=== PATIENT | female | born 1965 | race American Indian/Alaskan Native ===

== ENCOUNTER 2017-05-24 14:48 | Inpatient (IN) | payer SELFPAY ==
[2017-05-24] MEDS ORDERED: MORPHINE IV ONE ×2 (16:49→20:27)
[2017-05-24] MEDS ORDERED: ZOFRAN IV ONE (16:49)
--- NOTE | 2017-05-24 17:11 | Emergency Department Report ---
HPI - General Time Seen by Provider: 05/24/17 16:43 - HPI HPI: Room 24 The patient is a 51-year-old female presented with a chief complaint of chest pain. Patient states her symptoms began 5 days ago caused a sharp chest pain associated with shortness of breath nausea and diaphoresis. Patient also admits to a cough productive of brown sputum for the past 2-3 days and subjective fever. The patient currently gives her pain score 10/10. The patient states she's never had a stress test or cardiac catheterization Location: Chest Duration: 2-3 days Quality: Sharp Severity: 10/10 Modifying factors: [see above] Context: [see above] Mode of transportation: [not driving] ED Past Medical Hx - Past Medical History Hx Hypertension: Yes Hx Headaches / Migraines: Yes - Surgical History Past Surgical History?: Yes Hx Appendectomy: Yes (pt states its been a while) - Family History Family history: no significant - Social History Smoking Status: Current Every Day Smoker (1/2 pack per day) Substance Use Type: None (denies illicit drug) - Medications Home Medications: Home Medications Medication Instructions Recorded Confirmed Last Taken Type No Known Home Medications [No 05/24/17 05/24/17 Unknown History Reported Home Medications] ED Review of Systems ROS: Stated complaint: CHEST PAIN X 5 DAYS Other details as noted in HPI Constitutional: diaphoresis Respiratory: cough, shortness of breath Cardiovascular: chest pain Gastrointestinal: nausea. denies: vomiting Physical Exam - Physical Exam Vital Signs: Vital Signs 05/24/17 16:36 Temperature 98.0 F Pulse Rate 95 H Respiratory 16 Rate Blood Pressure 153/75 O2 Sat by Pulse 95 Oximetry Physical Exam: GENERAL: The patient is well-developed well-nourished female lying on stretcher appearing to be in mild discomfort. [] HEENT: Normocephalic. Atraumatic. Extraocular motions are intact. Patient has moist mucous membranes. NECK: Supple. Trachea midline CHEST/LUNGS: Clear to auscultation. There is no respiratory distress noted. HEART/CARDIOVASCULAR: Regular. There is no tachycardia. There is no gallop rub or murmur. ABDOMEN: Abdomen is soft, nontender. Patient has normal bowel sounds. There is no abdominal distention. SKIN: There is no rash. There is no edema. There is no diaphoresis. NEURO: The patient is awake, alert, and oriented. The patient is cooperative. The patient has normal speech MUSCULOSKELETAL: There is no evidence of acute injury. ED Course Vital Signs 05/24/17 16:36 Temperature 98.0 F Pulse Rate 95 H Respiratory 16 Rate Blood Pressure 153/75 O2 Sat by Pulse 95 Oximetry ED Medical Decision Making - Lab Data Result diagrams: 05/24/17 17:07 05/24/17 17:07 Laboratory Tests 05/24/17 05/24/17 05/24/17 17:07 17:07 17:07 WBC 4.1 L RBC 5.01 Hgb 15.9 H Hct 46.3 H MCV 92 MCH 32 MCHC 34 RDW 14.5 Plt Count 165 PT 14.2 INR 1.05 APTT 31.4 Sodium 129 L Potassium 4.9 Chloride 91.3 L Carbon Dioxide 18 L Anion Gap 25 BUN 21 H Creatinine 1.1 Estimated GFR > 60 BUN/Creatinine Ratio 19 Glucose 99 Calcium 8.4 Total Creatine Kinase 537 H CK-MB (CK-2) 7.5 H CK-MB (CK-2) Rel Index 1.3 Troponin T < 0.010 NT-Pro-B Natriuret Pep 586.3 H - EKG Data -: EKG Interpreted by Me EKG shows normal: sinus rhythm Rate: normal (98 bpm) - EKG Data When compared to previous EKG there are: previous EKG unavailable Interpretation: nonspecific ST-T wave lu (T-wave inversion aVL) - Radiology Data Radiology results: report reviewed (chest x-ray), image reviewed (chest x-ray) interpreted by me: Chest [id number] patchy infiltrates. No pneumothorax FINAL REPORT EXAM: XR CHEST 1V AP HISTORY: chest pain TECHNIQUE: Chest single AP PRIORS: There are no prior studies submitted for comparison FINDINGS: Is there are patchy bilateral confluent pulmonary infiltrates. Cardiac and mediastinal contours are unremarkable. Pulmonary vasculature is unremarkable. No pleural fluid collection identified. IMPRESSION: Bilateral pulmonary infiltrates suspicious for multifocal pneumonia Transcribed By: ANJU Dictated By: ASYA DANIEL MD Electronically Authenticated By: ASYA DANIEL MD Signed Date/Time: 05/24/171323 DD/ 23 TD/TT: 05/24/171323 - Differential Diagnosis pneumonia, ACS, pericarditis, GERD Critical care attestation.: If time is entered above; I have spent that time in minutes in the direct care of this critically ill patient, excluding procedure time. ED Disposition Clinical Impression: Bilateral pneumonia, Chest pain Disposition: DC-[id number] OP ADMIT IP TO THIS HOSP Is pt being admited?: Yes Does the pt Need Aspirin: Yes Condition: Fair Instructions: Bacterial Pneumonia (ED), Chest Pain (ED) Referrals: THALIA LITTLE MD [Primary Care Provider] - 3-5 Days Time of Disposition: 17:48 (hospitalist paged)
[2017-05-24 17:20] LABS: Hematocrit 46.3 % (30.3-42.9); Hemoglobin 15.9 gm/dl (10.1-14.3); Mean Corpuscular HGB Conc 34 % (30-34); Mean Corpuscular Hemoglobin 32 pg (28-32); Mean Corpuscular Volume 92 fl (79-97); Platelet Count 165 K/mm3 (140-440); Red Blood Count 5.01 M/mm3 (3.65-5.03); Red Cell Distribution Width 14.5 % (13.2-15.2)
--- NOTE | 2017-05-24 17:27 | XRay Report ---
FINAL REPORT EXAM: XR CHEST 1V AP HISTORY: chest pain TECHNIQUE: Chest single AP PRIORS: There are no prior studies submitted for comparison FINDINGS: Is there are patchy bilateral confluent pulmonary infiltrates. Cardiac and mediastinal contours are unremarkable. Pulmonary vasculature is unremarkable. No pleural fluid collection identified. IMPRESSION: Bilateral pulmonary infiltrates suspicious for multifocal pneumonia
[2017-05-24 17:31] LABS: INR 1.05 (0.87-1.13); Partial Thromboplastin Time 31.4 Sec. (24.2-36.6)
[2017-05-24 17:44] LABS: Creatine Kinase MB 7.5 ng/mL (0.0-4.0)
[2017-05-24 17:45] LABS: BUN/Creatinine Ratio 19; Blood Urea Nitrogen 21 mg/dL (7-17); Calcium 8.4 mg/dL (8.4-10.2); Hemolysis Index 59
[2017-05-24 17:55] LABS: Basophils % (Manual) 0 % (0.0-1.8); Eosinophils % (Manual) 0 % (0.0-4.3); Total Cells Counted 100
[2017-05-24 17:56] LABS: Anisocytosis 1+; Target Cells Rare
[2017-05-24] MEDS ORDERED: ZOSYN/NS 4.5GM/100ML 4.5 GM/100 ML VIAL IV ONE (18:30)
[2017-05-24] MEDS ORDERED: MORPHINE ONE (20:24)
[2017-05-24] MEDS: DUONEB *Not for PRN Use IH SCH ×2 (20:50→23:46)
[2017-05-24] MEDS ORDERED: TYLENOL PO PRN ×2 (21:31→22:00)
[2017-05-24] MEDS ORDERED: TYLENOL ONE (21:36)
--- NOTE | 2017-05-24 21:40 | History and Physical Report ---
History of Present Illness Date of examination: 05/24/17 Chief complaint: shortness of breath History of present illness: The patient is a 51-year-old female presented with a chief complaint of chest pain. Patient states her symptoms began 5 days ago caused a sharp chest pain associated with shortness of breath nausea and diaphoresis. Patient also admits to a cough productive of brown sputum for the past 2-3 days and subjective fever. The patient currently gives her pain score 10/10. The patient states she's never had a stress test or cardiac catheterization Past History Past Medical History: hypertension (is getting progress note from the patient is getting patient) Past Surgical History: appendectomy Social history: smoking, full code. denies: alcohol abuse, IV drug use Family history: no significant family history Medications and Allergies Allergies Allergy/AdvReac Type Severity Reaction Status Date / Time No Known Allergies Allergy Unverified 05/24/17 16:51 Home Medications Medication Instructions Recorded Confirmed Last Taken Type No Known Home Medications [No 05/24/17 05/24/17 Unknown History Reported Home Medications] Active Meds: Active Medications Acetaminophen (Tylenol) 650 mg PO Q4H PRN PRN Reason: For Pain/Fever/Headache Albuterol/Ipratropium (Duoneb *Not For Prn Use*) 1 ampul IH Q4H NAYE Last Admin: 05/24/17 20:50 Dose: 1 ampul Exam - Physical Exam Narrative exam: GENERAL: The patient is well-developed well-nourished female lying on stretcher appearing to be in mild discomfort. [] HEENT: Normocephalic. Atraumatic. Extraocular motions are intact. Patient has moist mucous membranes. NECK: Supple. Trachea midline CHEST/LUNGS: Clear to auscultation. There is no respiratory distress noted. HEART/CARDIOVASCULAR: Regular. There is no tachycardia. There is no gallop rub or murmur. ABDOMEN: Abdomen is soft, nontender. Patient has normal bowel sounds. There is no abdominal distention. SKIN: There is no rash. There is no edema. There is no diaphoresis. NEURO: The patient is awake, alert, and oriented. The patient is cooperative. The patient has normal speech MUSCULOSKELETAL: There is no evidence of acute injury. - Constitutional Vitals: Temp Pulse Resp BP Pulse Ox 100.4 F H 109 H 27 H 163/75 95 05/24/17 21:26 05/24/17 21:26 05/24/17 21:26 05/24/17 21:26 05/24/17 21:26 Results - Labs CBC & Chem 7: 05/24/17 17:07 05/24/17 17:07 Labs: Laboratory Last Values WBC 4.1 K/mm3 (4.5-11.0) L 05/24/17 17:07 RBC 5.01 M/mm3 (3.65-5.03) 05/24/17 17:07 Hgb 15.9 gm/dl (10.1-14.3) H 05/24/17 17:07 Hct 46.3 % (30.3-42.9) H 05/24/17 17:07 MCV 92 fl (79-97) 05/24/17 17:07 MCH 32 pg (28-32) 05/24/17 17:07 MCHC 34 % (30-34) 05/24/17 17:07 RDW 14.5 % (13.2-15.2) 05/24/17 17:07 Plt Count 165 K/mm3 (140-440) 05/24/17 17:07 Add Manual Diff Complete 05/24/17 17:07 Total Counted 100 05/24/17 17:07 Seg Neuts % (Manual) 76.0 % (40.0-70.0) H 05/24/17 17:07 Band Neutrophils % 0 % 05/24/17 17:07 Lymphocytes % (Manual) 16.0 % (13.4-35.0) 05/24/17 17:07 Reactive Lymphs % (Man) 0 % 05/24/17 17:07 Monocytes % (Manual) 5.0 % (0.0-7.3) 05/24/17 17:07 Eosinophils % (Manual) 0 % (0.0-4.3) 05/24/17 17:07 Basophils % (Manual) 0 % (0.0-1.8) 05/24/17 17:07 Metamyelocytes % 3.0 % 05/24/17 17:07 Myelocytes % 0 % 05/24/17 17:07 Promyelocytes % 0 % 05/24/17 17:07 Blast Cells % 0 % 05/24/17 17:07 Nucleated RBC % Not Reportable 05/24/17 17:07 Seg Neutrophils # Man 3.1 K/mm3 (1.8-7.7) 05/24/17 17:07 Band Neutrophils # 0.0 K/mm3 05/24/17 17:07 Lymphocytes # (Manual) 0.7 K/mm3 (1.2-5.4) L 05/24/17 17:07 Abs React Lymphs (Man) 0.0 K/mm3 05/24/17 17:07 Monocytes # (Manual) 0.2 K/mm3 (0.0-0.8) 05/24/17 17:07 Eosinophils # (Manual) 0.0 K/mm3 (0.0-0.4) 05/24/17 17:07 Basophils # (Manual) 0.0 K/mm3 (0.0-0.1) 05/24/17 17:07 Metamyelocytes # 0.1 K/mm3 05/24/17 17:07 Myelocytes # 0.0 K/mm3 05/24/17 17:07 Promyelocytes # 0.0 K/mm3 05/24/17 17:07 Blast Cells # 0.0 K/mm3 05/24/17 17:07 WBC Morphology Not Reportable 05/24/17 17:07 Hypersegmented Neuts Not Reportable 05/24/17 17:07 Hyposegmented Neuts Not Reportable 05/24/17 17:07 Hypogranular Neuts Not Reportable 05/24/17 17:07 Smudge Cells Not Reportable 05/24/17 17:07 Toxic Granulation Not Reportable 05/24/17 17:07 Toxic Vacuolation Not Reportable 05/24/17 17:07 Dohle Bodies Not Reportable 05/24/17 17:07 Pelger-Huet Anomaly Not Reportable 05/24/17 17:07 Rylan Rods Not Reportable 05/24/17 17:07 Platelet Estimate Appears normal 05/24/17 17:07 Clumped Platelets Not Reportable 05/24/17 17:07 Plt Clumps, EDTA Not Reportable 05/24/17 17:07 Large Platelets Not Reportable 05/24/17 17:07 Giant Platelets Not Reportable 05/24/17 17:07 Platelet Satelliting Not Reportable 05/24/17 17:07 Plt Morphology Comment Not Reportable 05/24/17 17:07 RBC Morphology Not Reportable 05/24/17 17:07 Dimorphic RBCs Not Reportable 05/24/17 17:07 Polychromasia Not Reportable 05/24/17 17:07 Hypochromasia Not Reportable 05/24/17 17:07 Poikilocytosis Not Reportable 05/24/17 17:07 Anisocytosis 1+ 05/24/17 17:07 Microcytosis Not Reportable 05/24/17 17:07 Macrocytosis Not Reportable 05/24/17 17:07 Spherocytes Not Reportable 05/24/17 17:07 Pappenheimer Bodies Not Reportable 05/24/17 17:07 Sickle Cells Not Reportable 05/24/17 17:07 Target Cells Rare 05/24/17 17:07 Tear Drop Cells Not Reportable 05/24/17 17:07 Ovalocytes Not Reportable 05/24/17 17:07 Helmet Cells Not Reportable 05/24/17 17:07 [place]an[place] Bodies Not Reportable 05/24/17 17:07 [place] Rings Not Reportable 05/24/17 17:07 Aung Cells Not Reportable 05/24/17 17:07 Bite Cells Not Reportable 05/24/17 17:07 Crenated Cell Not Reportable 05/24/17 17:07 Elliptocytes Not Reportable 05/24/17 17:07 Acanthocytes (Spur) Not Reportable 05/24/17 17:07 Rouleaux Not Reportable 05/24/17 17:07 Hemoglobin C Crystals Not Reportable 05/24/17 17:07 Schistocytes Not Reportable 05/24/17 17:07 Malaria parasites Not Reportable 05/24/17 17:07 Mac Bodies Not Reportable 05/24/17 17:07 Hem Pathologist Commnt No 05/24/17 17:07 PT 14.2 Sec. (12.2-14.9) 05/24/17 17:07 INR 1.05 (0.87-1.13) 05/24/17 17:07 APTT 31.4 Sec. (24.2-36.6) 05/24/17 17:07 POC ABG pH 7.317 (7.35-7.45) L 05/24/17 20:42 POC ABG pCO2 35.9 (35-45) 05/24/17 20:42 POC ABG pO2 200 (80-105) H 05/24/17 20:42 POC ABG HCO3 18.4 05/24/17 20:42 POC ABG Total CO2 19 05/24/17 20:42 POC ABG O2 Sat 100 05/24/17 20:42 POC ABG Base Excess -8 05/24/17 20:42 FiO2 100 % 05/24/17 20:42 Sodium 129 mmol/L (137-145) L 05/24/17 17:07 Potassium 4.9 mmol/L (3.6-5.0) 05/24/17 17:07 Chloride 91.3 mmol/L (98-107) L 05/24/17 17:07 Carbon Dioxide 18 mmol/L (22-30) L 05/24/17 17:07 Anion Gap 25 mmol/L 05/24/17 17:07 BUN 21 mg/dL (7-17) H 05/24/17 17:07 Creatinine 1.1 mg/dL (0.7-1.2) 05/24/17 17:07 Estimated GFR > 60 ml/min 05/24/17 17:07 BUN/Creatinine Ratio 19 % 05/24/17 17:07 Glucose 99 mg/dL (65-100) 05/24/17 17:07 Calcium 8.4 mg/dL (8.4-10.2) 05/24/17 17:07 Total Creatine Kinase 537 units/L (30-135) H 05/24/17 17:07 CK-MB (CK-2) 7.5 ng/mL (0.0-4.0) H 05/24/17 17:07 CK-MB (CK-2) Rel Index 1.3 (0-4) 05/24/17 17:07 Troponin T < 0.010 ng/mL (0.00-0.029) 05/24/17 17:07 NT-Pro-B Natriuret Pep 586.3 pg/mL (0-450) H 05/24/17 17:07 - Imaging and Cardiology Imaging and Cardiology: EKG shows normal: sinus rhythm Rate: normal (98 bpm) nonspecific ST-T wave lu (T-wave inversion aVL) Chest [id number] patchy infiltrates. No pneumothorax Assessment and Plan Assessment and plan: Assessment and plan - * Bilateral pneumonia * Hypertension * Hyponatremia * Chest pain likely due to pneumonia Plan - admit to medical floor with telemetry Antibiotics in the form of IV Rocephin and azithromycin Continue her home antihypertensive medications give when necessary labetalol When necessary pain medicines for chest pain IV fluids Monitor CBC and electrolytes Replace electrolytes when necessary aspirin protocol DVT Prophylaxis as ordered Monitor and follow the patient closely VTE prophylaxis?: Chemical, Mechanical Plan of care discussed with patient/family: Yes
[2017-05-24] MEDS ORDERED: ZOFRAN IV PRN (22:00)
[2017-05-24] MEDS ORDERED: MILK OF MAGNESIA PO PRN (22:00)
[2017-05-24] MEDS ORDERED: PROVENTIL IH PRN (22:00)
[2017-05-24] MEDS ORDERED: DULCOLAX PR PRN (22:00)
[2017-05-24] MEDS: PEPCID PO SCH (22:57)
[2017-05-24] MEDS: COLACE PO SCH (22:57)
[2017-05-25] MEDS: NACL 0.9% 1000 ML 1,000 ML IV SCH ×2 (00:21→18:10)
[2017-05-25] MEDS: MORPHINE IV PRN ×3 (00:33→23:53)
[2017-05-25] MEDS: DUONEB *Not for PRN Use IH SCH ×4 (01:54→20:08)
[2017-05-25 02:18] LABS: Chol/HDL Ratio 2.78 %
[2017-05-25] MEDS: NORCO 5/325 PO PRN ×2 (03:59→10:13)
[2017-05-25 05:45] LABS: Hematocrit 40.8 % (30.3-42.9); Hemoglobin 13.9 gm/dl (10.1-14.3); Mean Corpuscular HGB Conc 34 % (30-34); Mean Corpuscular Hemoglobin 32 pg (28-32); Mean Corpuscular Volume 92 fl (79-97); Platelet Count 143 K/mm3 (140-440); Red Blood Count 4.43 M/mm3 (3.65-5.03); Red Cell Distribution Width 14.9 % (13.2-15.2)
[2017-05-25 06:01] LABS: Alanine Aminotransferase 10 units/L (7-56); BUN/Creatinine Ratio 21; Blood Urea Nitrogen 21 mg/dL (7-17); Calcium 7.8 mg/dL (8.4-10.2); Hemolysis Index 4
[2017-05-25 06:46] LABS: Anisocytosis 1+; Band Neutrophils # (Manual) 1.4 K/mm3; Basophils % (Manual) 0 % (0.0-1.8); Burr Cells Few; Eosinophils % (Manual) 0 % (0.0-4.3); Target Cells Few; Total Cells Counted 100
[2017-05-25 06:47] LABS: Dohle Bodies Few; Platelet Estimate Consistent w Auto
[2017-05-25] MEDS ORDERED: ROCEPHIN/NS 1 GM/50 ML 1 GM/50 ML BAG IV SCH (10:00)
[2017-05-25] MEDS: COLACE PO SCH ×2 (10:12→21:35)
[2017-05-25] MEDS: LOVENOX SUB-Q SCH (10:12)
[2017-05-25] MEDS: SENOKOT PO SCH ×3 (10:12→21:35)
[2017-05-25] MEDS: PEPCID PO SCH ×2 (10:13→21:35)
--- NOTE | 2017-05-25 10:18 | Progress Note ---
Assessment and Plan Assessment and plan: Sepsis Multifocal pneumonia Lactic acidosis - IV ceftriaxone andazithromycin, IV fluids Chest pain - stress test tomorrow morning DVT prophylaxis -Lovenox Disposition - Continue inpatient care History Interval history: patient was seen and evaluated at the bedside, Complains left sided chest pain. Hospitalist Physical - Physical exam Narrative exam: Not in cardiopulmonary distress. The patient appeared well nourished and normally developed. Vital signs as documented. Head exam is unremarkable. No scleral icterus . Neck is without jugular venous distension, thyromegaly, or carotid bruits. Lungs are clear to auscultation. Cardiac exam reveals regular rate and Rhythm. First and second heart sounds normal. No murmurs, rubs or gallops. Abdominal exam reveals normal bowel sounds, no masses, no organomegaly and no aortic enlargement. Extremities are nonedematous and both femoral and pedal pulses are normal. DIRECTOR HEALTH: Alert and oriented 3. No focal weakness. - Constitutional Vitals: Temp Pulse Resp BP Pulse Ox 98.5 F 89 18 176/94 97 05/25/17 09:11 05/25/17 09:11 05/25/17 09:11 05/25/17 09:11 05/25/17 09:11 Results - Labs CBC & Chem 7: 05/25/17 05:09 05/25/17 05:09 Labs: Laboratory Last Values WBC 5.1 K/mm3 (4.5-11.0) 05/25/17 05:09 RBC 4.43 M/mm3 (3.65-5.03) 05/25/17 05:09 Hgb 13.9 gm/dl (10.1-14.3) 05/25/17 05:09 Hct 40.8 % (30.3-42.9) 05/25/17 05:09 MCV 92 fl (79-97) 05/25/17 05:09 MCH 32 pg (28-32) 05/25/17 05:09 MCHC 34 % (30-34) 05/25/17 05:09 RDW 14.9 % (13.2-15.2) 05/25/17 05:09 Plt Count 143 K/mm3 (140-440) 05/25/17 05:09 Add Manual Diff Complete 05/25/17 05:09 Total Counted 100 05/25/17 05:09 Seg Neuts % (Manual) 57.0 % (40.0-70.0) 05/25/17 05:09 Band Neutrophils % 28.0 % 05/25/17 05:09 Lymphocytes % (Manual) 10.0 % (13.4-35.0) L 05/25/17 05:09 Reactive Lymphs % (Man) 1.0 % 05/25/17 05:09 Monocytes % (Manual) 4.0 % (0.0-7.3) 05/25/17 05:09 Eosinophils % (Manual) 0 % (0.0-4.3) 05/25/17 05:09 Basophils % (Manual) 0 % (0.0-1.8) 05/25/17 05:09 Metamyelocytes % 0 % 05/25/17 05:09 Myelocytes % 0 % 05/25/17 05:09 Promyelocytes % 0 % 05/25/17 05:09 Blast Cells % 0 % 05/25/17 05:09 Nucleated RBC % Not Reportable 05/25/17 05:09 Seg Neutrophils # Man 2.9 K/mm3 (1.8-7.7) 05/25/17 05:09 Band Neutrophils # 1.4 K/mm3 05/25/17 05:09 Lymphocytes # (Manual) 0.5 K/mm3 (1.2-5.4) L 05/25/17 05:09 Abs React Lymphs (Man) 0.1 K/mm3 05/25/17 05:09 Monocytes # (Manual) 0.2 K/mm3 (0.0-0.8) 05/25/17 05:09 Eosinophils # (Manual) 0.0 K/mm3 (0.0-0.4) 05/25/17 05:09 Basophils # (Manual) 0.0 K/mm3 (0.0-0.1) 05/25/17 05:09 Metamyelocytes # 0.0 K/mm3 05/25/17 05:09 Myelocytes # 0.0 K/mm3 05/25/17 05:09 Promyelocytes # 0.0 K/mm3 05/25/17 05:09 Blast Cells # 0.0 K/mm3 05/25/17 05:09 WBC Morphology Not Reportable 05/25/17 05:09 Hypersegmented Neuts Not Reportable 05/25/17 05:09 Hyposegmented Neuts Not Reportable 05/25/17 05:09 Hypogranular Neuts Not Reportable 05/25/17 05:09 Smudge Cells Not Reportable 05/25/17 05:09 Toxic Granulation Not Reportable 05/25/17 05:09 Toxic Vacuolation Not Reportable 05/25/17 05:09 Dohle Bodies Few 05/25/17 05:09 Pelger-Huet Anomaly Not Reportable 05/25/17 05:09 Rylan Rods Not Reportable 05/25/17 05:09 Platelet Estimate Consistent w auto 05/25/17 05:09 Clumped Platelets Not Reportable 05/25/17 05:09 Plt Clumps, EDTA Not Reportable 05/25/17 05:09 Large Platelets Not Reportable 05/25/17 05:09 Giant Platelets Not Reportable 05/25/17 05:09 Platelet Satelliting Not Reportable 05/25/17 05:09 Plt Morphology Comment Not Reportable 05/25/17 05:09 RBC Morphology Not Reportable 05/25/17 05:09 Dimorphic RBCs Not Reportable 05/25/17 05:09 Polychromasia Not Reportable 05/25/17 05:09 Hypochromasia Not Reportable 05/25/17 05:09 Poikilocytosis Not Reportable 05/25/17 05:09 Anisocytosis 1+ 05/25/17 05:09 Microcytosis Not Reportable 05/25/17 05:09 Macrocytosis Not Reportable 05/25/17 05:09 Spherocytes Not Reportable 05/25/17 05:09 Pappenheimer Bodies Not Reportable 05/25/17 05:09 Sickle Cells Not Reportable 05/25/17 05:09 Target Cells Few 05/25/17 05:09 Tear Drop Cells Not Reportable 05/25/17 05:09 Ovalocytes Not Reportable 05/25/17 05:09 Helmet Cells Not Reportable 05/25/17 05:09 Mcdaniels-[place] Bodies Not Reportable 05/25/17 05:09 [place] Rings Not Reportable 05/25/17 05:09 Aung Cells Few 05/25/17 05:09 Bite Cells Not Reportable 05/25/17 05:09 Crenated Cell Not Reportable 05/25/17 05:09 Elliptocytes Not Reportable 05/25/17 05:09 Acanthocytes (Spur) Not Reportable 05/25/17 05:09 Rouleaux Not Reportable 05/25/17 05:09 Hemoglobin C Crystals Not Reportable 05/25/17 05:09 Schistocytes Not Reportable 05/25/17 05:09 Malaria parasites Not Reportable 05/25/17 05:09 Mac Bodies Not Reportable 05/25/17 05:09 Hem Pathologist Commnt No 05/25/17 05:09 PT 14.2 Sec. (12.2-14.9) 05/24/17 17:07 INR 1.05 (0.87-1.13) 05/24/17 17:07 APTT 31.4 Sec. (24.2-36.6) 05/24/17 17:07 POC ABG pH 7.317 (7.35-7.45) L 05/24/17 20:42 POC ABG pCO2 35.9 (35-45) 05/24/17 20:42 POC ABG pO2 200 (80-105) H 05/24/17 20:42 POC ABG HCO3 18.4 05/24/17 20:42 POC ABG Total CO2 19 05/24/17 20:42 POC ABG O2 Sat 100 05/24/17 20:42 POC ABG Base Excess -8 05/24/17 20:42 FiO2 100 % 05/24/17 20:42 Sodium 132 mmol/L (137-145) L 05/25/17 05:09 Potassium 4.6 mmol/L (3.6-5.0) 05/25/17 05:09 Chloride 96.5 mmol/L (98-107) L 05/25/17 05:09 Carbon Dioxide 17 mmol/L (22-30) L 05/25/17 05:09 Anion Gap 23 mmol/L 05/25/17 05:09 BUN 21 mg/dL (7-17) H 05/25/17 05:09 Creatinine 1.0 mg/dL (0.7-1.2) 05/25/17 05:09 Estimated GFR > 60 ml/min 05/25/17 05:09 BUN/Creatinine Ratio 21 % 05/25/17 05:09 Glucose 111 mg/dL (65-100) H 05/25/17 05:09 Hemoglobin A1c 5.9 % (4-6) 05/24/17 17:07 Lactic Acid 2.70 mmol/L (0.7-2.0) H* 05/25/17 05:09 Calcium 7.8 mg/dL (8.4-10.2) L 05/25/17 05:09 Phosphorus 3.10 mg/dL (2.5-4.5) 05/25/17 05:09 Magnesium 1.30 mg/dL (1.7-2.3) L 05/25/17 05:09 Total Bilirubin 0.30 mg/dL (0.1-1.2) 05/25/17 05:09 AST 29 units/L (5-40) 05/25/17 05:09 ALT 10 units/L (7-56) 05/25/17 05:09 Alkaline Phosphatase 59 units/L (35-129) 05/25/17 05:09 Total Creatine Kinase 537 units/L (30-135) H 05/24/17 17:07 CK-MB (CK-2) 7.5 ng/mL (0.0-4.0) H 05/24/17 17:07 CK-MB (CK-2) Rel Index 1.3 (0-4) 05/24/17 17:07 Troponin T < 0.010 ng/mL (0.00-0.029) 05/24/17 17:07 NT-Pro-B Natriuret Pep 586.3 pg/mL (0-450) H 05/24/17 17:07 Total Protein 6.4 g/dL (6.3-8.2) 05/25/17 05:09 Albumin 3.0 g/dL (3.9-5) L 05/25/17 05:09 Albumin/Globulin Ratio 0.9 % 05/25/17 05:09 Triglycerides 104 mg/dL (2-149) 05/24/17 17:07 Cholesterol 92 mg/dL (50-199) 05/24/17 17:07 LDL Cholesterol Direct 39 mg/dL (50-130) L 05/24/17 17:07 HDL Cholesterol 33 mg/dL (40-59) L 05/24/17 17:07 Cholesterol/HDL Ratio 2.78 % 05/24/17 17:07
[2017-05-25] MEDS: cefTRIAXone 1 GM in NACL 0.9% 20 ML IV SCH (11:33)
[2017-05-25] MEDS: ZITHROMAX 500 MG in NACL 0.9% 250ML 250 ML IV SCH (11:34)
[2017-05-25] MEDS ORDERED: Fluarix Quad 2017-2018(36 MOS+ IM ONE (12:00)
[2017-05-26] MEDS: DUONEB *Not for PRN Use IH SCH ×4 (01:15→20:25)
[2017-05-26] MEDS: NORMODYNE IV PRN ×2 (01:22→16:20)
[2017-05-26 06:37] LABS: Hemoglobin 11.5 gm/dl (10.1-14.3); Mean Corpuscular HGB Conc 34 % (30-34); Mean Corpuscular Hemoglobin 31 pg (28-32); Mean Corpuscular Volume 92 fl (79-97); Platelet Count 165 K/mm3 (140-440); Red Cell Distribution Width 15.1 % (13.2-15.2)
[2017-05-26] MEDS: MORPHINE IV PRN ×2 (06:37→12:22)
[2017-05-26 06:49] LABS: Hematocrit 35.6 % (30.3-42.9)
[2017-05-26 06:52] LABS: BUN/Creatinine Ratio 20; Blood Urea Nitrogen 12 mg/dL (7-17); Calcium 8.2 mg/dL (8.4-10.2); Hemolysis Index 3
[2017-05-26 07:50] LABS: Band Neutrophils # (Manual) 2.8 K/mm3; Basophils % (Manual) 0 % (0.0-1.8); Eosinophils % (Manual) 0 % (0.0-4.3); Total Cells Counted 100
[2017-05-26 07:51] LABS: Anisocytosis 1+; Burr Cells Few; Dohle Bodies Few; Macrocytosis 1+; Target Cells Rare
[2017-05-26] MEDS ORDERED: LEXISCAN IV ONE ×2 (08:24→10:10)
[2017-05-26] MEDS: NORCO 5/325 PO PRN ×2 (11:30→21:54)
[2017-05-26] MEDS: cefTRIAXone 1 GM in NACL 0.9% 20 ML IV SCH (12:19)
[2017-05-26] MEDS: LOVENOX SUB-Q SCH (12:20)
[2017-05-26] MEDS: PEPCID PO SCH ×2 (12:20→21:54)
[2017-05-26] MEDS: NORVASC PO SCH (12:20)
[2017-05-26] MEDS: SENOKOT PO SCH ×2 (12:21→21:54)
[2017-05-26] MEDS: COLACE PO SCH ×2 (12:21→21:55)
[2017-05-26] MEDS: APRESOLINE PO SCH ×2 (14:00→20:23)
--- NOTE | 2017-05-26 16:18 | Progress Note ---
Assessment and Plan Assessment and plan: Sepsis - Patient is managed according to sepsis protocol Multifocal pneumonia - Continue antibiotics, blood culture is negative so far Lactic acidosis - Resolved Hypertensive urgency; vision is on amlodipine, hydralazine, and clonidine added , will follow closely - IV ceftriaxone andazithromycin, IV fluids Chest pain - stress test done pending results - CTA ordered today, we'll follow the result DVT prophylaxis -Lovenox Disposition - Continue inpatient care History Interval history: patient was seen and evaluated at the bedside, chest pain is getting better. Hospitalist Physical - Physical exam Narrative exam: Not in cardiopulmonary distress. The patient appeared well nourished and normally developed. Vital signs as documented. Head exam is unremarkable. No scleral icterus . Neck is without jugular venous distension, thyromegaly, or carotid bruits. Lungs are clear to auscultation. Cardiac exam reveals regular rate and Rhythm. First and second heart sounds normal. No murmurs, rubs or gallops. Abdominal exam reveals normal bowel sounds, no masses, no organomegaly and no aortic enlargement. Extremities are nonedematous and both femoral and pedal pulses are normal. 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 No focal weakness. - Constitutional Vitals: Temp Pulse Resp BP Pulse Ox 99.0 F 91 H 18 212/92 94 05/26/17 05:26 05/26/17 09:58 05/26/17 07:07 05/26/17 09:58 05/26/17 05:26 Results - Labs CBC & Chem 7: 05/26/17 06:00 05/26/17 06:00 Labs: Laboratory Last Values WBC 7.3 K/mm3 (4.5-11.0) 05/26/17 06:00 RBC 3.70 M/mm3 (3.65-5.03) 05/26/17 06:00 Hgb 11.5 gm/dl (10.1-14.3) 05/26/17 06:00 Hct 35.6 % (30.3-42.9) 05/26/17 06:00 MCV 92 fl (79-97) 05/26/17 06:00 MCH 31 pg (28-32) 05/26/17 06:00 MCHC 34 % (30-34) 05/26/17 06:00 RDW 15.1 % (13.2-15.2) 05/26/17 06:00 Plt Count 165 K/mm3 (140-440) 05/26/17 06:00 Add Manual Diff Complete 05/26/17 06:00 Total Counted 100 05/26/17 06:00 Seg Neuts % (Manual) 48.0 % (40.0-70.0) 05/26/17 06:00 Band Neutrophils % 39.0 % 05/26/17 06:00 Lymphocytes % (Manual) 10.0 % (13.4-35.0) L 05/26/17 06:00 Reactive Lymphs % (Man) 0 % 05/26/17 06:00 Monocytes % (Manual) 3.0 % (0.0-7.3) 05/26/17 06:00 Eosinophils % (Manual) 0 % (0.0-4.3) 05/26/17 06:00 Basophils % (Manual) 0 % (0.0-1.8) 05/26/17 06:00 Metamyelocytes % 0 % 05/26/17 06:00 Myelocytes % 0 % 05/26/17 06:00 Promyelocytes % 0 % 05/26/17 06:00 Blast Cells % 0 % 05/26/17 06:00 Nucleated RBC % 1.0 % (0.0-0.9) H 05/26/17 06:00 Seg Neutrophils # Man 3.5 K/mm3 (1.8-7.7) 05/26/17 06:00 Band Neutrophils # 2.8 K/mm3 05/26/17 06:00 Lymphocytes # (Manual) 0.7 K/mm3 (1.2-5.4) L 05/26/17 06:00 Abs React Lymphs (Man) 0.0 K/mm3 05/26/17 06:00 Monocytes # (Manual) 0.2 K/mm3 (0.0-0.8) 05/26/17 06:00 Eosinophils # (Manual) 0.0 K/mm3 (0.0-0.4) 05/26/17 06:00 Basophils # (Manual) 0.0 K/mm3 (0.0-0.1) 05/26/17 06:00 Metamyelocytes # 0.0 K/mm3 05/26/17 06:00 Myelocytes # 0.0 K/mm3 05/26/17 06:00 Promyelocytes # 0.0 K/mm3 05/26/17 06:00 Blast Cells # 0.0 K/mm3 05/26/17 06:00 WBC Morphology Not Reportable 05/26/17 06:00 Hypersegmented Neuts Not Reportable 05/26/17 06:00 Hyposegmented Neuts Not Reportable 05/26/17 06:00 Hypogranular Neuts Not Reportable 05/26/17 06:00 Smudge Cells Not Reportable 05/26/17 06:00 Toxic Granulation Not Reportable 05/26/17 06:00 Toxic Vacuolation Not Reportable 05/26/17 06:00 Dohle Bodies Few 05/26/17 06:00 Pelger-Huet Anomaly Not Reportable 05/26/17 06:00 Rylan Rods Not Reportable 05/26/17 06:00 Platelet Estimate Appears normal 05/26/17 06:00 Clumped Platelets Not Reportable 05/26/17 06:00 Plt Clumps, EDTA Not Reportable 05/26/17 06:00 Large Platelets Not Reportable 05/26/17 06:00 Giant Platelets Not Reportable 05/26/17 06:00 Platelet Satelliting Not Reportable 05/26/17 06:00 Plt Morphology Comment Not Reportable 05/26/17 06:00 RBC Morphology Not Reportable 05/26/17 06:00 Dimorphic RBCs Not Reportable 05/26/17 06:00 Polychromasia Not Reportable 05/26/17 06:00 Hypochromasia Not Reportable 05/26/17 06:00 Poikilocytosis Not Reportable 05/26/17 06:00 Anisocytosis 1+ 05/26/17 06:00 Microcytosis Not Reportable 05/26/17 06:00 Macrocytosis 1+ 05/26/17 06:00 Spherocytes Not Reportable 05/26/17 06:00 Pappenheimer Bodies Not Reportable 05/26/17 06:00 Sickle Cells Not Reportable 05/26/17 06:00 Target Cells Rare 05/26/17 06:00 Tear Drop Cells Not Reportable 05/26/17 06:00 Ovalocytes Not Reportable 05/26/17 06:00 Helmet Cells Not Reportable 05/26/17 06:00 Mcdaniels-[place] Bodies Not Reportable 05/26/17 06:00 [place] Rings Not Reportable 05/26/17 06:00 [place] Cells Few 05/26/17 06:00 Bite Cells Not Reportable 05/26/17 06:00 Crenated Cell Not Reportable 05/26/17 06:00 Elliptocytes Not Reportable 05/26/17 06:00 Acanthocytes (Spur) Not Reportable 05/26/17 06:00 Rouleaux Not Reportable 05/26/17 06:00 Hemoglobin C Crystals Not Reportable 05/26/17 06:00 Schistocytes Not Reportable 05/26/17 06:00 Malaria parasites Not Reportable 05/26/17 06:00 Mac Bodies Not Reportable 05/26/17 06:00 Hem Pathologist Commnt No 05/26/17 06:00 PT 14.2 Sec. (12.2-14.9) 05/24/17 17:07 INR 1.05 (0.87-1.13) 05/24/17 17:07 APTT 31.4 Sec. (24.2-36.6) 05/24/17 17:07 POC ABG pH 7.317 (7.35-7.45) L 05/24/17 20:42 POC ABG pCO2 35.9 (35-45) 05/24/17 20:42 POC ABG pO2 200 (80-105) H 05/24/17 20:42 POC ABG HCO3 18.4 05/24/17 20:42 POC ABG Total CO2 19 05/24/17 20:42 POC ABG O2 Sat 100 05/24/17 20:42 POC ABG Base Excess -8 05/24/17 20:42 FiO2 100 % 05/24/17 20:42 Sodium 135 mmol/L (137-145) L 05/26/17 06:00 Potassium 4.3 mmol/L (3.6-5.0) 05/26/17 06:00 Chloride 101.4 mmol/L (98-107) 05/26/17 06:00 Carbon Dioxide 23 mmol/L (22-30) 05/26/17 06:00 Anion Gap 15 mmol/L 05/26/17 06:00 BUN 12 mg/dL (7-17) 05/26/17 06:00 Creatinine 0.6 mg/dL (0.7-1.2) L 05/26/17 06:00 Estimated GFR > 60 ml/min 05/26/17 06:00 BUN/Creatinine Ratio 20 % 05/26/17 06:00 Glucose 99 mg/dL (65-100) 05/26/17 06:00 Hemoglobin A1c 5.9 % (4-6) 05/24/17 17:07 Lactic Acid 1.20 mmol/L (0.7-2.0) 05/26/17 11:34 Calcium 8.2 mg/dL (8.4-10.2) L 05/26/17 06:00 Phosphorus 3.10 mg/dL (2.5-4.5) 05/25/17 05:09 Magnesium 1.30 mg/dL (1.7-2.3) L 05/25/17 05:09 Total Bilirubin 0.30 mg/dL (0.1-1.2) 05/25/17 05:09 AST 29 units/L (5-40) 05/25/17 05:09 ALT 10 units/L (7-56) 05/25/17 05:09 Alkaline Phosphatase 59 units/L (35-129) 05/25/17 05:09 Total Creatine Kinase 537 units/L (30-135) H 05/24/17 17:07 CK-MB (CK-2) 7.5 ng/mL (0.0-4.0) H 05/24/17 17:07 CK-MB (CK-2) Rel Index 1.3 (0-4) 05/24/17 17:07 Troponin T < 0.010 ng/mL (0.00-0.029) 05/24/17 17:07 NT-Pro-B Natriuret Pep 586.3 pg/mL (0-450) H 05/24/17 17:07 Total Protein 6.4 g/dL (6.3-8.2) 05/25/17 05:09 Albumin 3.0 g/dL (3.9-5) L 05/25/17 05:09 Albumin/Globulin Ratio 0.9 % 05/25/17 05:09 Triglycerides 104 mg/dL (2-149) 05/24/17 17:07 Cholesterol 92 mg/dL (50-199) 05/24/17 17:07 LDL Cholesterol Direct 39 mg/dL (50-130) L 05/24/17 17:07 HDL Cholesterol 33 mg/dL (40-59) L 05/24/17 17:07 Cholesterol/HDL Ratio 2.78 % 05/24/17 17:07
[2017-05-26] MEDS ORDERED: NACL ONE (16:27)
[2017-05-26] MEDS: LEVAQUIN 750MG/150ML 750 MG/150 ML BAG IV SCH (20:19)
[2017-05-26] MEDS: XANAX PO PRN (21:54)
[2017-05-26] MEDS: CATAPRES PO SCH (21:55)
[2017-05-26] MEDS: AMBIEN PO PRN (21:55)
[2017-05-27] MEDS: DUONEB *Not for PRN Use IH SCH ×5 (02:33→20:12)
[2017-05-27 06:15] LABS: Hematocrit 32.7 % (30.3-42.9); Hemoglobin 11.2 gm/dl (10.1-14.3); Mean Corpuscular HGB Conc 34 % (30-34); Mean Corpuscular Hemoglobin 32 pg (28-32); Mean Corpuscular Volume 92 fl (79-97); Platelet Count 199 K/mm3 (140-440); Red Blood Count 3.57 M/mm3 (3.65-5.03); Red Cell Distribution Width 14.9 % (13.2-15.2)
[2017-05-27 06:29] LABS: BUN/Creatinine Ratio 14; Blood Urea Nitrogen 7 mg/dL (7-17); Hemolysis Index 2
[2017-05-27 07:43] LABS: Total Cells Counted 100
[2017-05-27 07:44] LABS: Anisocytosis 1+; Band Neutrophils # (Manual) 0.7 K/mm3; Basophils % (Manual) 0 % (0.0-1.8); Eosinophils % (Manual) 0 % (0.0-4.3); Macrocytosis 1+
[2017-05-27 07:45] LABS: Burr Cells Few; Dohle Bodies Rare; Target Cells Few
[2017-05-27] MEDS: APRESOLINE PO SCH ×3 (08:05→20:25)
[2017-05-27] MEDS: NORCO 5/325 PO PRN ×3 (08:06→23:28)
[2017-05-27] MEDS: CATAPRES PO SCH ×2 (10:32→21:33)
[2017-05-27] MEDS: NORVASC PO SCH ×2 (10:33→14:13)
[2017-05-27] MEDS: COLACE PO SCH ×2 (10:33→21:34)
[2017-05-27] MEDS: LOVENOX SUB-Q SCH (10:34)
[2017-05-27] MEDS: PEPCID PO SCH ×2 (10:34→21:33)
--- NOTE | 2017-05-27 10:59 | Cat Scan Report ---
CTA CHEST: HISTORY: Shortness of breath. COMPARISON: none. TECHNIQUE: Helical CT in 1.25mm intervals following IV contrast. Pulmonary embolus protocol. Sagittal and coronal reformatted images. Rotational MIP images. FINDINGS: Contrast bolus is satisfactory. No pulmonary embolus is identified. Thyroid gland: Normal. Tracheobronchial tree: Normal. Esophagus: Normal. Heart: Normal. Pericardium: Normal. Mediastinum: There are scattered reactive lymph nodes in the paratracheal chain and bilateral hilar chains. Lung M[place]: There are moderate infiltrates with areas of consolidation in the left upper lobe and medial right lower lobe. Mild underlying emphysematous changes are suspected. No obvious mass. Pleural Spaces: Trace right pleural effusion. Musculoskeletal: Normal. IMPRESSION: No evidence for pulmonary embolus. Bilateral infiltrates most consistent with pneumonia or aspiration.
--- NOTE | 2017-05-27 12:14 | Treadmill Report ---
NUCLEAR STRESS TEST REPORT The patient is brought to the Cardiology lab, Lexiscan stress test is performed. The patient tolerated the procedure well. Post-stress images reveal fairly homogeneous distribution of the isotope with no significant reversibility noted during rest to indicate ischemia. Accompanying gated study shows good systolic function with normal wall motion. Calculated ejection fraction is noted to be 69%. IMPRESSION: 1. Nuclear stress test is negative for significant reversible defects to indicate ischemia. 2. Good systolic function with no wall motion abnormalities. Calculated ejection fraction is noted to be 69%. 3. Suggest clinical course. JOB# [id number] KB/NTS
[2017-05-27] MEDS: SENOKOT PO SCH ×2 (14:14→21:33)
--- NOTE | 2017-05-27 17:07 | Progress Note ---
Assessment and Plan Assessment and plan: Sepsis - Patient is managed according to sepsis protocol Multifocal pneumonia - Continue antibiotics, blood culture is negative so far Lactic acidosis - Resolved Hypertensive urgency; vision is on amlodipine, hydralazine, and clonidine added , will follow closely - IV ceftriaxone andazithromycin, IV fluids Chest pain - stress test done and negative for reversible defect - CTA negative for PE showed bilateral pneumonia DVT prophylaxis -Lovenox Disposition -Possible discharge tomorrow. History Interval history: patient was seen and evaluated at the bedside, chest pain is getting better. Hospitalist Physical - Physical exam Narrative exam: Not in cardiopulmonary distress. The patient appeared well nourished and normally developed. Vital signs as documented. Head exam is unremarkable. No scleral icterus . Neck is without jugular venous distension, thyromegaly, or carotid bruits. Lungs are clear to auscultation. Cardiac exam reveals regular rate and Rhythm. First and second heart sounds normal. No murmurs, rubs or gallops. Abdominal exam reveals normal bowel sounds, no masses, no organomegaly and no aortic enlargement. Extremities are nonedematous and both femoral and pedal pulses are normal. 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 No focal weakness. - Constitutional Vitals: Temp Pulse Resp BP Pulse Ox 99.6 F 109 H 20 190/68 96 05/27/17 08:44 05/27/17 13:58 05/27/17 13:58 05/27/17 14:13 05/27/17 13:53 Results - Labs CBC & Chem 7: 05/27/17 05:26 05/27/17 05:26 Labs: Laboratory Last Values WBC 9.8 K/mm3 (4.5-11.0) 05/27/17 05:26 RBC 3.57 M/mm3 (3.65-5.03) L 05/27/17 05:26 Hgb 11.2 gm/dl (10.1-14.3) 05/27/17 05:26 Hct 32.7 % (30.3-42.9) 05/27/17 05:26 MCV 92 fl (79-97) 05/27/17 05:26 MCH 32 pg (28-32) 05/27/17 05:26 MCHC 34 % (30-34) 05/27/17 05:26 RDW 14.9 % (13.2-15.2) 05/27/17 05:26 Plt Count 199 K/mm3 (140-440) 05/27/17 05:26 Add Manual Diff Complete 05/27/17 05:26 Total Counted 100 05/27/17 05:26 Seg Neuts % (Manual) 76.0 % (40.0-70.0) H 05/27/17 05:26 Band Neutrophils % 7.0 % 05/27/17 05:26 Lymphocytes % (Manual) 7.0 % (13.4-35.0) L 05/27/17 05:26 Reactive Lymphs % (Man) 0 % 05/27/17 05:26 Monocytes % (Manual) 10.0 % (0.0-7.3) H 05/27/17 05:26 Eosinophils % (Manual) 0 % (0.0-4.3) 05/27/17 05:26 Basophils % (Manual) 0 % (0.0-1.8) 05/27/17 05:26 Metamyelocytes % 0 % 05/27/17 05:26 Myelocytes % 0 % 05/27/17 05:26 Promyelocytes % 0 % 05/27/17 05:26 Blast Cells % 0 % 05/27/17 05:26 Nucleated RBC % Not Reportable 05/27/17 05:26 Seg Neutrophils # Man 7.4 K/mm3 (1.8-7.7) 05/27/17 05:26 Band Neutrophils # 0.7 K/mm3 05/27/17 05:26 Lymphocytes # (Manual) 0.7 K/mm3 (1.2-5.4) L 05/27/17 05:26 Abs React Lymphs (Man) 0.0 K/mm3 05/27/17 05:26 Monocytes # (Manual) 1.0 K/mm3 (0.0-0.8) H 05/27/17 05:26 Eosinophils # (Manual) 0.0 K/mm3 (0.0-0.4) 05/27/17 05:26 Basophils # (Manual) 0.0 K/mm3 (0.0-0.1) 05/27/17 05:26 Metamyelocytes # 0.0 K/mm3 05/27/17 05:26 Myelocytes # 0.0 K/mm3 05/27/17 05:26 Promyelocytes # 0.0 K/mm3 05/27/17 05:26 Blast Cells # 0.0 K/mm3 05/27/17 05:26 WBC Morphology Not Reportable 05/27/17 05:26 Hypersegmented Neuts Not Reportable 05/27/17 05:26 Hyposegmented Neuts Not Reportable 05/27/17 05:26 Hypogranular Neuts Not Reportable 05/27/17 05:26 Smudge Cells Not Reportable 05/27/17 05:26 Toxic Granulation Not Reportable 05/27/17 05:26 Toxic Vacuolation Not Reportable 05/27/17 05:26 Dohle Bodies Rare 05/27/17 05:26 Pelger-Huet Anomaly Not Reportable 05/27/17 05:26 Rylan Rods Not Reportable 05/27/17 05:26 Platelet Estimate Appears normal 05/27/17 05:26 Clumped Platelets Not Reportable 05/27/17 05:26 Plt Clumps, EDTA Not Reportable 05/27/17 05:26 Large Platelets Not Reportable 05/27/17 05:26 Giant Platelets Not Reportable 05/27/17 05:26 Platelet Satelliting Not Reportable 05/27/17 05:26 Plt Morphology Comment Not Reportable 05/27/17 05:26 RBC Morphology Not Reportable 05/27/17 05:26 Dimorphic RBCs Not Reportable 05/27/17 05:26 Polychromasia Not Reportable 05/27/17 05:26 Hypochromasia Not Reportable 05/27/17 05:26 Poikilocytosis Not Reportable 05/27/17 05:26 Anisocytosis 1+ 05/27/17 05:26 Microcytosis Not Reportable 05/27/17 05:26 Macrocytosis 1+ 05/27/17 05:26 Spherocytes Not Reportable 05/27/17 05:26 Pappenheimer Bodies Not Reportable 05/27/17 05:26 Sickle Cells Not Reportable 05/27/17 05:26 Target Cells Few 05/27/17 05:26 Tear Drop Cells Not Reportable 05/27/17 05:26 Ovalocytes Not Reportable 05/27/17 05:26 Helmet Cells Not Reportable 05/27/17 05:26 Mcdaniels-[place] Bodies Not Reportable 05/27/17 05:26 [place] Rings Not Reportable 05/27/17 05:26 [place] Cells Few 05/27/17 05:26 Bite Cells Not Reportable 05/27/17 05:26 Crenated Cell Not Reportable 05/27/17 05:26 Elliptocytes Not Reportable 05/27/17 05:26 Acanthocytes (Spur) Not Reportable 05/27/17 05:26 Rouleaux Not Reportable 05/27/17 05:26 Hemoglobin C Crystals Not Reportable 05/27/17 05:26 Schistocytes Not Reportable 05/27/17 05:26 Malaria parasites Not Reportable 05/27/17 05:26 Mac Bodies Not Reportable 05/27/17 05:26 Hem Pathologist Commnt No 05/27/17 05:26 PT 14.2 Sec. (12.2-14.9) 05/24/17 17:07 INR 1.05 (0.87-1.13) 05/24/17 17:07 APTT 31.4 Sec. (24.2-36.6) 05/24/17 17:07 POC ABG pH 7.317 (7.35-7.45) L 05/24/17 20:42 POC ABG pCO2 35.9 (35-45) 05/24/17 20:42 POC ABG pO2 200 (80-105) H 05/24/17 20:42 POC ABG HCO3 18.4 05/24/17 20:42 POC ABG Total CO2 19 05/24/17 20:42 POC ABG O2 Sat 100 05/24/17 20:42 POC ABG Base Excess -8 05/24/17 20:42 FiO2 100 % 05/24/17 20:42 Sodium 136 mmol/L (137-145) L 05/27/17 05:26 Potassium 3.9 mmol/L (3.6-5.0) 05/27/17 05:26 Chloride 98.3 mmol/L (98-107) 05/27/17 05:26 Carbon Dioxide 26 mmol/L (22-30) 05/27/17 05:26 Anion Gap 16 mmol/L 05/27/17 05:26 BUN 7 mg/dL (7-17) 05/27/17 05:26 Creatinine 0.5 mg/dL (0.7-1.2) L 05/27/17 05:26 Estimated GFR > 60 ml/min 05/27/17 05:26 BUN/Creatinine Ratio 14 % 05/27/17 05:26 Glucose 82 mg/dL (65-100) 05/27/17 05:26 Hemoglobin A1c 5.9 % (4-6) 05/24/17 17:07 Lactic Acid 0.90 mmol/L (0.7-2.0) 05/27/17 05:26 Calcium 8.0 mg/dL (8.4-10.2) L 05/27/17 05:26 Phosphorus 3.10 mg/dL (2.5-4.5) 05/25/17 05:09 Magnesium 1.30 mg/dL (1.7-2.3) L 05/25/17 05:09 Total Bilirubin 0.30 mg/dL (0.1-1.2) 05/25/17 05:09 AST 29 units/L (5-40) 05/25/17 05:09 ALT 10 units/L (7-56) 05/25/17 05:09 Alkaline Phosphatase 59 units/L (35-129) 05/25/17 05:09 Total Creatine Kinase 537 units/L (30-135) H 05/24/17 17:07 CK-MB (CK-2) 7.5 ng/mL (0.0-4.0) H 05/24/17 17:07 CK-MB (CK-2) Rel Index 1.3 (0-4) 05/24/17 17:07 Troponin T < 0.010 ng/mL (0.00-0.029) 05/24/17 17:07 NT-Pro-B Natriuret Pep 586.3 pg/mL (0-450) H 05/24/17 17:07 Total Protein 6.4 g/dL (6.3-8.2) 05/25/17 05:09 Albumin 3.0 g/dL (3.9-5) L 05/25/17 05:09 Albumin/Globulin Ratio 0.9 % 05/25/17 05:09 Triglycerides 104 mg/dL (2-149) 05/24/17 17:07 Cholesterol 92 mg/dL (50-199) 05/24/17 17:07 LDL Cholesterol Direct 39 mg/dL (50-130) L 05/24/17 17:07 HDL Cholesterol 33 mg/dL (40-59) L 05/24/17 17:07 Cholesterol/HDL Ratio 2.78 % 05/24/17 17:07
[2017-05-27] MEDS: LEVAQUIN 750MG/150ML 750 MG/150 ML BAG IV SCH (19:28)
[2017-05-27] MEDS: AMBIEN PO PRN (21:33)
[2017-05-27] MEDS: XANAX PO PRN (21:33)
[2017-05-28] MEDS: DUONEB *Not for PRN Use IH SCH ×4 (02:57→20:45)
[2017-05-28 06:16] LABS: Hematocrit 35.6 % (30.3-42.9); Hemoglobin 12.1 gm/dl (10.1-14.3); Mean Corpuscular HGB Conc 34 % (30-34); Mean Corpuscular Hemoglobin 31 pg (28-32); Mean Corpuscular Volume 92 fl (79-97); Platelet Count 293 K/mm3 (140-440); Red Blood Count 3.87 M/mm3 (3.65-5.03); Red Cell Distribution Width 14.9 % (13.2-15.2)
[2017-05-28 06:36] LABS: BUN/Creatinine Ratio 12; Blood Urea Nitrogen 7 mg/dL (7-17); Calcium 8.6 mg/dL (8.4-10.2); Hemolysis Index 14
[2017-05-28 08:06] LABS: Band Neutrophils # (Manual) 0.5 K/mm3; Basophils % (Manual) 0 % (0.0-1.8); Total Cells Counted 100
[2017-05-28 08:07] LABS: Anisocytosis 1+; Dohle Bodies Rare; Hypochromasia 1+; Target Cells Rare
[2017-05-28] MEDS: NORCO 5/325 PO PRN ×2 (09:18→20:02)
[2017-05-28] MEDS: LOVENOX SUB-Q SCH (09:18)
[2017-05-28] MEDS: NORVASC PO SCH (09:20)
[2017-05-28] MEDS: APRESOLINE PO SCH ×3 (09:20→20:22)
[2017-05-28] MEDS: PEPCID PO SCH ×2 (09:20→22:09)
[2017-05-28] MEDS: COLACE PO SCH ×2 (10:00→22:10)
[2017-05-28] MEDS: SENOKOT PO SCH ×2 (10:50→22:10)
[2017-05-28] MEDS: CATAPRES PO SCH ×2 (11:10→22:10)
--- NOTE | 2017-05-28 11:21 | Discharge Summary ---
Providers - Providers Date of Admission: 05/24/17 22:01 Attending physician: OZIEL GUPTA MD Primary care physician: THALIA LITTLE Hospitalization Reason for admission: Bilateral pneumonia Condition: Fair Disposition: DC-01 TO HOME OR SELFCARE Time spent for discharge: 31 minutes - Discharge Diagnoses (1) Bilateral pneumonia Status: Acute (2) Chest pain Status: Acute Core Measure Documentation - Palliative Care Palliative Care/ Comfort Measures: Not Applicable - Core Measures Any of the following diagnoses?: none Exam - Physical Exam Narrative exam: Not in cardiopulmonary distress. The patient appeared well nourished and normally developed. Vital signs as documented. Head exam is unremarkable. No scleral icterus . Neck is without jugular venous distension, thyromegaly, or carotid bruits. Lungs are clear to auscultation. Cardiac exam reveals regular rate and Rhythm. First and second heart sounds normal. No murmurs, rubs or gallops. Abdominal exam reveals normal bowel sounds, no masses, no organomegaly and no aortic enlargement. Extremities are nonedematous and both femoral and pedal pulses are normal. 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 No focal weakness. - Constitutional Vitals: Temp Pulse Resp BP Pulse Ox 98.8 F 98 H 20 170/60 100 05/28/17 08:42 05/28/17 09:20 05/28/17 08:42 05/28/17 08:42 05/28/17 08:42 Plan Activity: no restrictions Weight Bearing Status: Full Weight Bearing Diet: low cholesterol, low salt Follow up with: THALIA LITTLE MD [Primary Care Provider] - 7 Days Prescriptions: amLODIPine [Norvasc] 10 mg PO QDAY #30 tablet cloNIDine [Catapres] 0.3 mg PO Q12HR #60 tablet Docusate Sodium [Colace CAP] 100 mg PO BID #12 capsule hydrALAZINE [Apresoline TAB] 100 mg PO TID #90 tab HYDROcodone/APAP 5-325 [[place] 5-325 mg TAB] 2 each PO Q6H PRN #12 tablet PRN Reason: Pain, Moderate (4-6) Levofloxacin [Levaquin] 750 mg PO QDAY #7 tablet
--- NOTE | 2017-05-28 18:30 | Progress Note ---
Assessment and Plan Assessment and plan: Acute hypoxic respiratory failure - On oxygen support, manage the underlying condition - Patient need Home O2, but couldn't give oxygen because didn't have insurance - We'll evaluate her tomorrow again for discharge Sepsis - Patient is managed according to sepsis protocol - IV ceftriaxone andazithromycin, IV fluids Multifocal pneumonia - Continue antibiotics, blood culture is negative so far - IV ceftriaxone andazithromycin, IV fluids Lactic acidosis - Resolved Hypertensive urgency; patient is on amlodipine, hydralazine, and clonidine added , will follow closely - Blood pressure is still uncontrolled, add HCTZ Chest pain - stress test done and negative for reversible defect - CTA negative for PE showed bilateral pneumonia DVT prophylaxis -Lovenox Disposition -Continue inpatient care and do home O2 evaluation tomorrow. - Patient Problems (1) Bilateral pneumonia Current Visit: Yes Status: Acute (2) Chest pain Current Visit: Yes Status: Acute History Interval history: patient was seen and evaluated at the bedside, chest pain is getting better. Patient home O2 evaluation, patient didn't have insurance and can't be discharged with home O2. Hospitalist Physical - Physical exam Narrative exam: Not in cardiopulmonary distress. The patient appeared well nourished and normally developed. Vital signs as documented. Head exam is unremarkable. No scleral icterus . Neck is without jugular venous distension, thyromegaly, or carotid bruits. Lungs are clear to auscultation. Cardiac exam reveals regular rate and Rhythm. First and second heart sounds normal. No murmurs, rubs or gallops. Abdominal exam reveals normal bowel sounds, no masses, no organomegaly and no aortic enlargement. Extremities are nonedematous and both femoral and pedal pulses are normal. MANAGER UTILIZATION REVIEW: Alert and oriented 3. No focal weakness. - Constitutional Vitals: Temp Pulse Resp BP Pulse Ox 99.0 F 115 H 20 175/85 100 05/28/17 16:57 05/28/17 16:57 05/28/17 16:57 05/28/17 16:57 05/28/17 16:57 Results - Labs CBC & Chem 7: 05/28/17 05:22 05/28/17 05:22 Labs: Laboratory Last Values WBC 9.8 K/mm3 (4.5-11.0) 05/28/17 05:22 RBC 3.87 M/mm3 (3.65-5.03) 05/28/17 05:22 Hgb 12.1 gm/dl (10.1-14.3) 05/28/17 05:22 Hct 35.6 % (30.3-42.9) 05/28/17 05:22 MCV 92 fl (79-97) 05/28/17 05:22 MCH 31 pg (28-32) 05/28/17 05:22 MCHC 34 % (30-34) 05/28/17 05:22 RDW 14.9 % (13.2-15.2) 05/28/17 05:22 Plt Count 293 K/mm3 (140-440) 05/28/17 05:22 [place] % (Auto) Director Electrical Engineering 05/28/17 05:22 Add Manual Diff Complete 05/28/17 05:22 Total Counted 100 05/28/17 05:22 Seg Neuts % (Manual) 66.0 % (40.0-70.0) 05/28/17 05:22 Band Neutrophils % 5.0 % 05/28/17 05:22 Lymphocytes % (Manual) 13.0 % (13.4-35.0) L 05/28/17 05:22 Reactive Lymphs % (Man) 0 % 05/28/17 05:22 Monocytes % (Manual) 13.0 % (0.0-7.3) H 05/28/17 05:22 Eosinophils % (Manual) 1.0 % (0.0-4.3) 05/28/17 05:22 Basophils % (Manual) 0 % (0.0-1.8) 05/28/17 05:22 Metamyelocytes % 2.0 % 05/28/17 05:22 Myelocytes % 0 % 05/28/17 05:22 Promyelocytes % 0 % 05/28/17 05:22 Blast Cells % 0 % 05/28/17 05:22 Nucleated RBC % Not Reportable 05/28/17 05:22 Seg Neutrophils # Man 6.5 K/mm3 (1.8-7.7) 05/28/17 05:22 Band Neutrophils # 0.5 K/mm3 05/28/17 05:22 Lymphocytes # (Manual) 1.3 K/mm3 (1.2-5.4) 05/28/17 05:22 Abs React Lymphs (Man) 0.0 K/mm3 05/28/17 05:22 Monocytes # (Manual) 1.3 K/mm3 (0.0-0.8) H 05/28/17 05:22 Eosinophils # (Manual) 0.1 K/mm3 (0.0-0.4) 05/28/17 05:22 Basophils # (Manual) 0.0 K/mm3 (0.0-0.1) 05/28/17 05:22 Metamyelocytes # 0.2 K/mm3 05/28/17 05:22 Myelocytes # 0.0 K/mm3 05/28/17 05:22 Promyelocytes # 0.0 K/mm3 05/28/17 05:22 Blast Cells # 0.0 K/mm3 05/28/17 05:22 WBC Morphology Not Reportable 05/28/17 05:22 Hypersegmented Neuts Not Reportable 05/28/17 05:22 Hyposegmented Neuts Not Reportable 05/28/17 05:22 Hypogranular Neuts Not Reportable 05/28/17 05:22 Smudge Cells Not Reportable 05/28/17 05:22 Toxic Granulation Not Reportable 05/28/17 05:22 Toxic Vacuolation Not Reportable 05/28/17 05:22 Dohle Bodies Rare 05/28/17 05:22 Pelger-Huet Anomaly Not Reportable 05/28/17 05:22 Rylan Rods Not Reportable 05/28/17 05:22 Platelet Estimate Appears normal 05/28/17 05:22 Clumped Platelets Not Reportable 05/28/17 05:22 Plt Clumps, EDTA Not Reportable 05/28/17 05:22 Large Platelets Not Reportable 05/28/17 05:22 Giant Platelets Not Reportable 05/28/17 05:22 Platelet Satelliting Not Reportable 05/28/17 05:22 Plt Morphology Comment Not Reportable 05/28/17 05:22 RBC Morphology Not Reportable 05/28/17 05:22 Dimorphic RBCs Not Reportable 05/28/17 05:22 Polychromasia Not Reportable 05/28/17 05:22 Hypochromasia 1+ 05/28/17 05:22 Poikilocytosis Not Reportable 05/28/17 05:22 Anisocytosis 1+ 05/28/17 05:22 Microcytosis Not Reportable 05/28/17 05:22 Macrocytosis Not Reportable 05/28/17 05:22 Spherocytes Not Reportable 05/28/17 05:22 Pappenheimer Bodies Not Reportable 05/28/17 05:22 Sickle Cells Not Reportable 05/28/17 05:22 Target Cells Rare 05/28/17 05:22 Tear Drop Cells Not Reportable 05/28/17 05:22 Ovalocytes Not Reportable 05/28/17 05:22 Helmet Cells Not Reportable 05/28/17 05:22 [place] Bodies Not Reportable 05/28/17 05:22 [place] Rings Not Reportable 05/28/17 05:22 Aung Cells Not Reportable 05/28/17 05:22 Bite Cells Not Reportable 05/28/17 05:22 Crenated Cell Not Reportable 05/28/17 05:22 Elliptocytes Not Reportable 05/28/17 05:22 Acanthocytes (Spur) Not Reportable 05/28/17 05:22 Rouleaux Not Reportable 05/28/17 05:22 Hemoglobin C Crystals Not Reportable 05/28/17 05:22 Schistocytes Not Reportable 05/28/17 05:22 Malaria parasites Not Reportable 05/28/17 05:22 Mac Bodies Not Reportable 05/28/17 05:22 Hem Pathologist Commnt No 05/28/17 05:22 PT 14.2 Sec. (12.2-14.9) 05/24/17 17:07 INR 1.05 (0.87-1.13) 05/24/17 17:07 APTT 31.4 Sec. (24.2-36.6) 05/24/17 17:07 POC ABG pH 7.317 (7.35-7.45) L 05/24/17 20:42 POC ABG pCO2 35.9 (35-45) 05/24/17 20:42 POC ABG pO2 200 (80-105) H 05/24/17 20:42 POC ABG HCO3 18.4 05/24/17 20:42 POC ABG Total CO2 19 05/24/17 20:42 POC ABG O2 Sat 100 05/24/17 20:42 POC ABG Base Excess -8 05/24/17 20:42 FiO2 100 % 05/24/17 20:42 Sodium 138 mmol/L (137-145) 05/28/17 05:22 Potassium 3.7 mmol/L (3.6-5.0) 05/28/17 05:22 Chloride 97.4 mmol/L (98-107) L 05/28/17 05:22 Carbon Dioxide 25 mmol/L (22-30) 05/28/17 05:22 Anion Gap 19 mmol/L 05/28/17 05:22 BUN 7 mg/dL (7-17) 05/28/17 05:22 Creatinine 0.6 mg/dL (0.7-1.2) L 05/28/17 05:22 Estimated GFR > 60 ml/min 05/28/17 05:22 BUN/Creatinine Ratio 12 % 05/28/17 05:22 Glucose 83 mg/dL (65-100) 05/28/17 05:22 Hemoglobin A1c 5.9 % (4-6) 05/24/17 17:07 Lactic Acid 0.90 mmol/L (0.7-2.0) 05/27/17 05:26 Calcium 8.6 mg/dL (8.4-10.2) 05/28/17 05:22 Phosphorus 3.10 mg/dL (2.5-4.5) 05/25/17 05:09 Magnesium 1.30 mg/dL (1.7-2.3) L 05/25/17 05:09 Total Bilirubin 0.30 mg/dL (0.1-1.2) 05/25/17 05:09 AST 29 units/L (5-40) 05/25/17 05:09 ALT 10 units/L (7-56) 05/25/17 05:09 Alkaline Phosphatase 59 units/L (35-129) 05/25/17 05:09 Total Creatine Kinase 537 units/L (30-135) H 05/24/17 17:07 CK-MB (CK-2) 7.5 ng/mL (0.0-4.0) H 05/24/17 17:07 CK-MB (CK-2) Rel Index 1.3 (0-4) 05/24/17 17:07 Troponin T < 0.010 ng/mL (0.00-0.029) 05/24/17 17:07 NT-Pro-B Natriuret Pep 586.3 pg/mL (0-450) H 05/24/17 17:07 Total Protein 6.4 g/dL (6.3-8.2) 05/25/17 05:09 Albumin 3.0 g/dL (3.9-5) L 05/25/17 05:09 Albumin/Globulin Ratio 0.9 % 05/25/17 05:09 Triglycerides 104 mg/dL (2-149) 05/24/17 17:07 Cholesterol 92 mg/dL (50-199) 05/24/17 17:07 LDL Cholesterol Direct 39 mg/dL (50-130) L 05/24/17 17:07 HDL Cholesterol 33 mg/dL (40-59) L 05/24/17 17:07 Cholesterol/HDL Ratio 2.78 % 05/24/17 17:07
[2017-05-28] MEDS: HCTZ PO SCH (20:02)
[2017-05-28] MEDS: LEVAQUIN 750MG/150ML 750 MG/150 ML BAG IV SCH (20:08)
[2017-05-28] MEDS: ZITHROMAX 500 MG in NACL 0.9% 250ML 250 ML IV SCH (21:14)
[2017-05-29] MEDS: NORCO 5/325 PO PRN ×3 (01:49→23:23)
[2017-05-29] MEDS: DUONEB *Not for PRN Use IH SCH ×4 (01:57→21:19)
[2017-05-29] MEDS: MORPHINE IV PRN ×2 (06:11→13:20)
[2017-05-29] MEDS: NACL 0.9% 1000 ML 1,000 ML IV SCH ×2 (06:11→16:25)
[2017-05-29 06:48] LABS: Hematocrit 32.9 % (30.3-42.9); Hemoglobin 11.3 gm/dl (10.1-14.3); Mean Corpuscular HGB Conc 34 % (30-34); Mean Corpuscular Hemoglobin 32 pg (28-32); Mean Corpuscular Volume 92 fl (79-97); Platelet Count 330 K/mm3 (140-440); Red Blood Count 3.57 M/mm3 (3.65-5.03); Red Cell Distribution Width 14.7 % (13.2-15.2)
[2017-05-29 07:05] LABS: BUN/Creatinine Ratio 10; Blood Urea Nitrogen 5 mg/dL (7-17); Calcium 8.6 mg/dL (8.4-10.2); Hemolysis Index 5
[2017-05-29] MEDS: APRESOLINE PO SCH ×3 (09:21→19:24)
[2017-05-29] MEDS: HCTZ PO SCH (09:21)
[2017-05-29] MEDS: CATAPRES PO SCH ×2 (09:22→22:00)
[2017-05-29] MEDS: PEPCID PO SCH ×2 (09:22→22:00)
[2017-05-29] MEDS: COLACE PO SCH ×2 (09:22→21:59)
[2017-05-29] MEDS: SENOKOT PO SCH ×2 (09:23→22:00)
[2017-05-29] MEDS: NORVASC PO SCH (09:23)
[2017-05-29] MEDS: LOVENOX SUB-Q SCH (09:23)
[2017-05-29 10:19] LABS: Basophils % (Manual) 0 % (0.0-1.8); Eosinophils % (Manual) 0 % (0.0-4.3); Monocytes % (Manual) 16 % (0.0-7.3); Total Cells Counted 100
[2017-05-29 10:20] LABS: Anisocytosis 1+; Hypochromasia 1+; Target Cells Few
--- NOTE | 2017-05-29 13:10 | Consultation ---
History of Present Illness - Reason for Consult Consult date: 05/29/17 pneumonia Requesting physician: OZIEL GUPTA - History of Present Illness 51 years old female with history of, admitted on 05/24/2017 due to 7 day history of chest congestion with brown sputum production, subjective fever, generalized weakness, malaise and midsternal chest pain 6 out of 10, which increases with cough and deep inspiration. She also reports shortness of breath , nausea and chills. Denies any urinary symptoms, she does reports abdominal pain diffuse however denies any diarrhea. Emergency room, initial temperature was 100.4, heart rate 116, respiration 29, O2 sat 96, blood pressure 150 para 68. White count 4.1. Sodium 129. Lactic acid 2.7. CK 537. Chest x-ray showed bilateral pulmonary infiltrates with multifocal pneumonia. CT showed no PE and bilateral infiltrates. Microbiology: Blood cultures: 05/24 ngtd Current Antimicrobials: Ceftriaxone azithromycin Previous Antimicrobials: Past History Past Medical History: hypertension (is getting progress note from the patient is getting patient) Past Surgical History: appendectomy Social history: smoking, full code. denies: alcohol abuse, IV drug use Family history: no significant family history Medications and Allergies Allergies Allergy/AdvReac Type Severity Reaction Status Date / Time No Known Allergies Allergy Unverified 05/24/17 16:51 Home Medications Medication Instructions Recorded Confirmed Last Taken Type Docusate Sodium [Colace CAP] 100 mg PO BID #12 capsule 05/28/17 Unknown Rx HYDROcodone/APAP 5-325 [[place] 2 each PO Q6H PRN #12 tablet 05/28/17 Unknown Rx 5-325 mg TAB] Levofloxacin [Levaquin] 750 mg PO QDAY #7 tablet 05/28/17 Unknown Rx amLODIPine [Norvasc] 10 mg PO QDAY #30 tablet 05/28/17 Unknown Rx cloNIDine [Catapres] 0.3 mg PO Q12HR #60 tablet 05/28/17 Unknown Rx hydrALAZINE [Apresoline TAB] 100 mg PO TID #90 tab 05/28/17 Unknown Rx Active Meds: Active Medications Acetaminophen (Tylenol) 650 mg PO Q4H PRN PRN Reason: Pain MILD(1-3)/Fever >100.5/TODD Acetaminophen/Hydrocodone Bitart ([place] 5/325) 2 each PO Q6H PRN PRN Reason: Pain, Moderate (4-6) Last Admin: 05/29/17 01:49 Dose: 2 each Albuterol (Proventil) 2.5 mg IH Q3HRT PRN PRN Reason: Shortness Of Breath Albuterol/Ipratropium (Duoneb *Not For Prn Use*) 1 ampul IH Q6HRT [facility] Last Admin: 05/29/17 08:14 Dose: 1 ampul Alprazolam (Xanax) 0.125 mg PO Q8H PRN PRN Reason: Anxiety Last Admin: 05/27/17 21:33 Dose: 0.125 mg Amlodipine Besylate (Norvasc) 10 mg PO QDAY [facility] Last Admin: 05/29/17 09:23 Dose: 10 mg Bisacodyl (Dulcolax) 10 mg GA QDAY PRN PRN Reason: Constipation unrelieved by MOM Clonidine HCl (Catapres) 0.2 mg PO Q12HR [facility] Last Admin: 05/29/17 09:22 Dose: 0.2 mg Docusate Sodium (Colace) 100 mg PO BID [facility] Last Admin: 05/29/17 09:22 Dose: 100 mg Enoxaparin Sodium (Lovenox) 40 mg SUB-Q QDAY [facility] Last Admin: 05/29/17 09:23 Dose: 40 mg Famotidine (Pepcid) 20 mg PO BID [facility] Last Admin: 05/29/17 09:22 Dose: 20 mg Hydralazine HCl (Apresoline) 100 mg PO TID [facility] Last Admin: 05/29/17 09:21 Dose: 100 mg Hydrochlorothiazide (Hctz) 25 mg PO QDAY [facility] Last Admin: 05/29/17 09:21 Dose: 25 mg Sodium Chloride (Nacl 0.9% 1000 Ml) 1,000 mls @ 150 mls/hr IV DIRECT [facility] Last Admin: 05/29/17 06:11 Dose: 150 mls/hr Levofloxacin/Dextrose (Levaquin 750mg/150ml) 750 mg in 150 mls @ 100 mls/hr IV Q24H NAYE PRN Reason: Protocol Last Admin: 05/28/17 20:08 Dose: 100 mls/hr Labetalol HCl (Normodyne) 10 mg IV Q4H PRN PRN Reason: Hypertension Last Admin: 05/26/17 16:20 Dose: 10 mg Magnesium Hydroxide (Milk Of Magnesia) 30 ml PO Q4H PRN PRN Reason: Constipation Morphine Sulfate (Morphine) 2 mg IV Q4H PRN PRN Reason: Pain, Moderate (4-6) Last Admin: 05/29/17 06:11 Dose: 2 mg Ondansetron HCl (Zofran) 4 mg IV Q8H PRN PRN Reason: N/V unrelieved by Erin Duarte (Senokot) 8.6 mg PO Q12HR NAYE Last Admin: 05/29/17 09:23 Dose: 8.6 mg Zolpidem Tartrate (Ambien) 5 mg PO QHS PRN PRN Reason: Insomnia Last Admin: 05/27/17 21:33 Dose: 5 mg Review of Systems All systems: negative (as per HPI rest neg) Physical Examination - Physical Exam Narrative exam: General appearance: Alert in NAD, ill appearing Eyes: anicteric sclerae, moist conjunctivae; no lid-lag; PERRLA HENT: Atraumatic; oropharynx clear Neck: Trachea midline; supple, no thyromegaly or lymphadenopathy Lungs: david rhonchi CV: tachy Abdomen: Soft, non-tender; no masses or hepatosplenomegaly Extremities: No peripheral edema or extremity lymphadenopathy Skin: Normal temperature, turgor and texture; no rash, ulcers or subcutaneous nodules Psych: Appropriate affect, alert and oriented to person, place and time. Neuro: alert and oriented x 3. Moving all extermities Lines: No CVL / PICC - Constitutional Vitals: Vital Signs Temp Pulse Resp BP Pulse Ox 97.4 F L 102 H 20 175/81 95 05/29/17 00:45 05/29/17 09:23 05/29/17 06:41 05/29/17 09:23 05/29/17 08:17 Temperature -Last 24 Hours Temperature 97.4 F Temperature 98.6 F Temperature 99.0 F Temperature 99.0 F Results - Labs CBC & Chem 7: 05/29/17 06:00 05/29/17 06:00 Labs: Abnormal lab results 05/29/17 05/29/17 Range/Units 06:00 06:00 RBC 3.57 L (3.65-5.03) M/mm3 Lymphocytes % (Manual) 11.0 L (13.4-35.0) % Monocytes % (Manual) 16 H (0.0-7.3) % Monocytes # (Manual) 1.7 H (0.0-0.8) K/mm3 Potassium 3.5 L (3.6-5.0) mmol/L Chloride 96.6 L (98-107) mmol/L BUN 5 L (7-17) mg/dL Creatinine 0.5 L (0.7-1.2) mg/dL Assessment and Plan Assessment: 1) Sepsis: Present on admission, manifested by fever, tachycardia, increased lactate. Etiology - multifocal pneumonia. 2) Multifocal pneumonia: ? CAP ?legionnaries 3) Hyponatremia 4) Elevated CK 5) Respiratory failure Plan: -follow-up blood cultures -obtain respiratory cultures, procalcitonin, C-reactive protein (CRP) -check influenza antigen PCR in nasopharinx -check Legionella urine antigen, Streptococcus pneumoniae urine antigen -obtain HIV test -continue ceftriaxone -stop azithromycin -start levaquin Thank you Dr Gupta for your consultation, will follow up with you. Fay Steele MD Infectious Diseases Specialist [facility] ([facility] M [phone] O [phone]
[2017-05-29] MEDS ORDERED: ROCEPHIN/NS 2 GM/100 ML 2 GM/100 ML BAG IV SCH (14:00)
--- NOTE | 2017-05-29 15:29 | Progress Note ---
Assessment and Plan Assessment and plan: Acute hypoxic respiratory failure - On oxygen support, manage the underlying condition - Patient need Home O2, but couldn't give oxygen because didn't have insurance - Pulmonary consult pending Sepsis - Patient is managed according to sepsis protocol - IV ceftriaxone andazithromycin, IV fluids Multifocal pneumonia - Continue antibiotics, blood culture is negative so far - ID consulted and change azithromycin to Levaquin Lactic acidosis - Resolved Hypertensive urgency; patient is on amlodipine, hydralazine, and clonidine added , will follow closely - Blood pressure is still uncontrolled, add HCTZ Chest pain - stress test done and negative for reversible defect - CTA negative for PE showed bilateral pneumonia DVT prophylaxis -Lovenox Disposition -Continue inpatient care - Patient Problems (1) Bilateral pneumonia Current Visit: Yes Status: Acute (2) Chest pain Current Visit: Yes Status: Acute History Interval history: patient was seen and evaluated at the bedside, chest pain is getting better. Patient home O2 evaluation, patient didn't have insurance and can't be discharged with home O2. Hospitalist Physical - Physical exam Narrative exam: Not in cardiopulmonary distress. The patient appeared well nourished and normally developed. Vital signs as documented. Head exam is unremarkable. No scleral icterus . Neck is without jugular venous distension, thyromegaly, or carotid bruits. Lungs are clear to auscultation. Cardiac exam reveals regular rate and Rhythm. First and second heart sounds normal. No murmurs, rubs or gallops. Abdominal exam reveals normal bowel sounds, no masses, no organomegaly and no aortic enlargement. Extremities are nonedematous and both femoral and pedal pulses are normal. LADLE WATCHER: Alert and oriented 3. No focal weakness. - Constitutional Vitals: Temp Pulse Resp BP Pulse Ox 97.4 F L 108 H 20 175/81 94 05/29/17 00:45 05/29/17 13:24 05/29/17 13:24 05/29/17 09:23 05/29/17 12:31 Results - Labs CBC & Chem 7: 05/29/17 06:00 05/29/17 06:00 Labs: Laboratory Last Values WBC 10.7 K/mm3 (4.5-11.0) 05/29/17 06:00 RBC 3.57 M/mm3 (3.65-5.03) L 05/29/17 06:00 Hgb 11.3 gm/dl (10.1-14.3) 05/29/17 06:00 Hct 32.9 % (30.3-42.9) 05/29/17 06:00 MCV 92 fl (79-97) 05/29/17 06:00 MCH 32 pg (28-32) 05/29/17 06:00 MCHC 34 % (30-34) 05/29/17 06:00 RDW 14.7 % (13.2-15.2) 05/29/17 06:00 Plt Count 330 K/mm3 (140-440) 05/29/17 06:00 [place] % (Auto) Table Worker Packager 05/29/17 06:00 Add Manual Diff Complete 05/29/17 06:00 Total Counted 100 05/29/17 06:00 Seg Neuts % (Manual) 64 % (40.0-70.0) 05/29/17 06:00 Band Neutrophils % 9.0 % 05/29/17 06:00 Lymphocytes % (Manual) 11.0 % (13.4-35.0) L 05/29/17 06:00 Reactive Lymphs % (Man) 0 % 05/29/17 06:00 Monocytes % (Manual) 16 % (0.0-7.3) H 05/29/17 06:00 Eosinophils % (Manual) 0 % (0.0-4.3) 05/29/17 06:00 Basophils % (Manual) 0 % (0.0-1.8) 05/29/17 06:00 Metamyelocytes % 0 % 05/29/17 06:00 Myelocytes % 0 % 05/29/17 06:00 Promyelocytes % 0 % 05/29/17 06:00 Blast Cells % 0 % 05/29/17 06:00 Nucleated RBC % Not Reportable 05/29/17 06:00 Seg Neutrophils # Man 6.8 K/mm3 (1.8-7.7) 05/29/17 06:00 Band Neutrophils # 1.0 K/mm3 05/29/17 06:00 Lymphocytes # (Manual) 1.2 K/mm3 (1.2-5.4) 05/29/17 06:00 Abs React Lymphs (Man) 0.0 K/mm3 05/29/17 06:00 Monocytes # (Manual) 1.7 K/mm3 (0.0-0.8) H 05/29/17 06:00 Eosinophils # (Manual) 0.0 K/mm3 (0.0-0.4) 05/29/17 06:00 Basophils # (Manual) 0.0 K/mm3 (0.0-0.1) 05/29/17 06:00 Metamyelocytes # 0.0 K/mm3 05/29/17 06:00 Myelocytes # 0.0 K/mm3 05/29/17 06:00 Promyelocytes # 0.0 K/mm3 05/29/17 06:00 Blast Cells # 0.0 K/mm3 05/29/17 06:00 WBC Morphology Not Reportable 05/29/17 06:00 Hypersegmented Neuts Not Reportable 05/29/17 06:00 Hyposegmented Neuts Not Reportable 05/29/17 06:00 Hypogranular Neuts Not Reportable 05/29/17 06:00 Smudge Cells Not Reportable 05/29/17 06:00 Toxic Granulation Not Reportable 05/29/17 06:00 Toxic Vacuolation Not Reportable 05/29/17 06:00 Dohle Bodies Not Reportable 05/29/17 06:00 Pelger-[place]uet Anomaly Not Reportable 05/29/17 06:00 Rylan Rods Not Reportable 05/29/17 06:00 Platelet Estimate Not Reportable 05/29/17 06:00 Clumped Platelets Not Reportable 05/29/17 06:00 Plt Clumps, EDTA Not Reportable 05/29/17 06:00 Large Platelets Not Reportable 05/29/17 06:00 Giant Platelets Not Reportable 05/29/17 06:00 Platelet Satelliting Not Reportable 05/29/17 06:00 Plt Morphology Comment Not Reportable 05/29/17 06:00 RBC Morphology Not Reportable 05/29/17 06:00 Dimorphic RBCs Not Reportable 05/29/17 06:00 Polychromasia Not Reportable 05/29/17 06:00 Hypochromasia 1+ 05/29/17 06:00 Poikilocytosis Not Reportable 05/29/17 06:00 Anisocytosis 1+ 05/29/17 06:00 Microcytosis Not Reportable 05/29/17 06:00 Macrocytosis Not Reportable 05/29/17 06:00 Spherocytes Not Reportable 05/29/17 06:00 Pappenheimer Bodies Not Reportable 05/29/17 06:00 Sickle Cells Not Reportable 05/29/17 06:00 Target Cells Few 05/29/17 06:00 Tear Drop Cells Not Reportable 05/29/17 06:00 Ovalocytes Not Reportable 05/29/17 06:00 Helmet Cells Not Reportable 05/29/17 06:00 [place] Bodies Not Reportable 05/29/17 06:00 [place] Rings Not Reportable 05/29/17 06:00 Aung Cells Not Reportable 05/29/17 06:00 Bite Cells Not Reportable 05/29/17 06:00 Crenated Cell Not Reportable 05/29/17 06:00 Elliptocytes Not Reportable 05/29/17 06:00 Acanthocytes (Spur) Not Reportable 05/29/17 06:00 Rouleaux Not Reportable 05/29/17 06:00 Hemoglobin C Crystals Not Reportable 05/29/17 06:00 Schistocytes Not Reportable 05/29/17 06:00 Malaria parasites Not Reportable 05/29/17 06:00 Mac Bodies Not Reportable 05/29/17 06:00 Hem Pathologist Commnt No 05/29/17 06:00 PT 14.2 Sec. (12.2-14.9) 05/24/17 17:07 INR 1.05 (0.87-1.13) 05/24/17 17:07 APTT 31.4 Sec. (24.2-36.6) 05/24/17 17:07 POC ABG pH 7.317 (7.35-7.45) L 05/24/17 20:42 POC ABG pCO2 35.9 (35-45) 05/24/17 20:42 POC ABG pO2 200 (80-105) H 05/24/17 20:42 POC ABG HCO3 18.4 05/24/17 20:42 POC ABG Total CO2 19 05/24/17 20:42 POC ABG O2 Sat 100 05/24/17 20:42 POC ABG Base Excess -8 05/24/17 20:42 FiO2 100 % 05/24/17 20:42 Sodium 138 mmol/L (137-145) 05/29/17 06:00 Potassium 3.5 mmol/L (3.6-5.0) L 05/29/17 06:00 Chloride 96.6 mmol/L (98-107) L 05/29/17 06:00 Carbon Dioxide 26 mmol/L (22-30) 05/29/17 06:00 Anion Gap 19 mmol/L 05/29/17 06:00 BUN 5 mg/dL (7-17) L 05/29/17 06:00 Creatinine 0.5 mg/dL (0.7-1.2) L 05/29/17 06:00 Estimated GFR > 60 ml/min 05/29/17 06:00 BUN/Creatinine Ratio 10 % 05/29/17 06:00 Glucose 100 mg/dL (65-100) 05/29/17 06:00 Hemoglobin A1c 5.9 % (4-6) 05/24/17 17:07 Lactic Acid 0.90 mmol/L (0.7-2.0) 05/27/17 05:26 Calcium 8.6 mg/dL (8.4-10.2) 05/29/17 06:00 Phosphorus 3.10 mg/dL (2.5-4.5) 05/25/17 05:09 Magnesium 1.30 mg/dL (1.7-2.3) L 05/25/17 05:09 Total Bilirubin 0.30 mg/dL (0.1-1.2) 05/25/17 05:09 AST 29 units/L (5-40) 05/25/17 05:09 ALT 10 units/L (7-56) 05/25/17 05:09 Alkaline Phosphatase 59 units/L (35-129) 05/25/17 05:09 Total Creatine Kinase 537 units/L (30-135) H 05/24/17 17:07 CK-MB (CK-2) 7.5 ng/mL (0.0-4.0) H 05/24/17 17:07 CK-MB (CK-2) Rel Index 1.3 (0-4) 05/24/17 17:07 Troponin T < 0.010 ng/mL (0.00-0.029) 05/24/17 17:07 NT-Pro-B Natriuret Pep 586.3 pg/mL (0-450) H 05/24/17 17:07 Total Protein 6.4 g/dL (6.3-8.2) 05/25/17 05:09 Albumin 3.0 g/dL (3.9-5) L 05/25/17 05:09 Albumin/Globulin Ratio 0.9 % 05/25/17 05:09 Triglycerides 104 mg/dL (2-149) 05/24/17 17:07 Cholesterol 92 mg/dL (50-199) 05/24/17 17:07 LDL Cholesterol Direct 39 mg/dL (50-130) L 05/24/17 17:07 HDL Cholesterol 33 mg/dL (40-59) L 05/24/17 17:07 Cholesterol/HDL Ratio 2.78 % 05/24/17 17:07
[2017-05-29] MEDS: cefTRIAXone 2 GM in NACL 0.9% 20 ML IV SCH (16:00)
[2017-05-29] MEDS: LEVAQUIN 750MG/150ML 750 MG/150 ML BAG IV SCH (17:38)
[2017-05-29] MEDS: XANAX PO PRN (19:24)
[2017-05-30] MEDS: DUONEB *Not for PRN Use IH SCH ×4 (02:48→20:15)
[2017-05-30] MEDS: NORCO 5/325 PO PRN ×3 (06:27→19:15)
[2017-05-30 06:34] LABS: Hematocrit 31.2 % (30.3-42.9); Hemoglobin 10.8 gm/dl (10.1-14.3); Mean Corpuscular HGB Conc 35 % (30-34); Mean Corpuscular Hemoglobin 32 pg (28-32); Mean Corpuscular Volume 92 fl (79-97); Platelet Count 379 K/mm3 (140-440); Red Blood Count 3.41 M/mm3 (3.65-5.03); Red Cell Distribution Width 14.9 % (13.2-15.2)
[2017-05-30 06:53] LABS: BUN/Creatinine Ratio 10; Blood Urea Nitrogen 4 mg/dL (7-17); Calcium 8.2 mg/dL (8.4-10.2); Hemolysis Index 6
[2017-05-30] MEDS: APRESOLINE PO SCH ×3 (08:30→19:15)
[2017-05-30] MEDS ORDERED: K-DUR PO ONE (08:30)
[2017-05-30] MEDS: PEPCID PO SCH ×2 (10:01→22:03)
[2017-05-30] MEDS: COLACE PO SCH ×2 (10:01→22:03)
[2017-05-30] MEDS: LOVENOX SUB-Q SCH (10:01)
[2017-05-30] MEDS: SENOKOT PO SCH ×2 (10:01→22:04)
[2017-05-30] MEDS: CATAPRES PO SCH ×2 (10:02→22:03)
[2017-05-30] MEDS: HCTZ PO SCH (10:02)
[2017-05-30] MEDS: NORVASC PO SCH (10:02)
--- NOTE | 2017-05-30 10:59 | Progress Note ---
Assessment and Plan Assessment: 1) Sepsis: resolved. Etiology - multifocal pneumonia. 2) Multifocal pneumonia: ? CAP ?legionnaries. HIV test negative. 3) Hyponatremia - better 4) Elevated CK 5) Respiratory failure - better Plan: -f/u respiratory cultures, procalcitonin, C-reactive protein (CRP), influenza antigen PCR in nasopharinx -f/u Legionella urine antigen, Streptococcus pneumoniae urine antigen -continue ceftriaxone day 5 of 7 -start levaquin day 2 of 10 -ok to d/c home on levaquin to complete 10 days if she continues to improve Thank you Dr Giles for your consultation, will follow up with you. Fay Steele MD Infectious Diseases Specialist [facility] M [phone] O [phone] Subjective Date of service: 05/30/17 Principal diagnosis: sepsis Interval history: Feels better, no wheezing, no fever. Microbiology: Blood cultures: 05/24 ngtd Current Antimicrobials: Ceftriaxone 05/26 levaquin 05/29 Previous Antimicrobials: azithromycin Objective - Exam Narrative Exam: General appearance: Alert in NAD pleasant Eyes: anicteric sclerae, moist conjunctivae; no lid-lag; PERRLA HENT: Atraumatic; oropharynx clear Neck: Trachea midline; supple, no thyromegaly or lymphadenopathy Lungs: CTA david CV: rrr Abdomen: Soft, non-tender; no masses or hepatosplenomegaly Extremities: No peripheral edema or extremity lymphadenopathy Skin: Normal temperature, turgor and texture; no rash, ulcers or subcutaneous nodules Psych: Appropriate affect, alert and oriented to person, place and time. Neuro: alert and oriented x 3. Moving all extermities Lines: No CVL / PICC - Constitutional Vitals: Vital Signs Temp Pulse Resp BP Pulse Ox 97.8 F 87 20 171/81 100 05/30/17 08:21 05/30/17 10:02 05/30/17 08:21 05/30/17 10:02 05/30/17 08:21 Temperature -Last 24 Hours Temperature 97.8 F Temperature 98.1 F Temperature 97.5 F Temperature 98.5 F - Labs CBC & Chem 7: 05/30/17 06:05 05/30/17 06:05 Labs: Abnormal lab results 05/30/17 05/30/17 Range/Units 06:05 06:05 WBC 11.2 H (4.5-11.0) K/mm3 RBC 3.41 L (3.65-5.03) M/mm3 MCHC 35 H (30-34) % Sodium 134 L (137-145) mmol/L Potassium 2.8 L* (3.6-5.0) mmol/L Chloride 91.3 L (98-107) mmol/L BUN 4 L (7-17) mg/dL Creatinine 0.4 L (0.7-1.2) mg/dL Calcium 8.2 L (8.4-10.2) mg/dL
[2017-05-30 13:36] LABS: Band Neutrophils # (Manual) 0.4 K/mm3; Basophils % (Manual) 0 % (0.0-1.8); Eosinophils % (Manual) 0 % (0.0-4.3); Total Cells Counted 100
[2017-05-30 13:37] LABS: Anisocytosis 1+; Target Cells 1+
[2017-05-30] MEDS: cefTRIAXone 2 GM in NACL 0.9% 20 ML IV SCH (15:16)
--- NOTE | 2017-05-30 16:31 | Progress Note ---
Assessment and Plan Assessment and plan: Acute hypoxic respiratory failure - On oxygen support, manage the underlying condition - Patient need Home O2, but couldn't give oxygen because didn't have insurance - Pulmonary consult pending Sepsis - Patient is managed according to sepsis protocol - IV levaquin Multifocal pneumonia - Continue antibiotic, blood culture is negative so far - ID consulted and change azithromycin to Levaquin Lactic acidosis - Resolved Hypertensive urgency; patient is on amlodipine, hydralazine, HCTZ and clonidine - Blood pressure is still uncontrolled Chest pain - stress test done and negative for reversible defect - CTA negative for PE showed bilateral pneumonia Hypokalemia - repleted - will check BMP DVT prophylaxis -Lovenox Disposition -Continue inpatient care - Patient Problems (1) Bilateral pneumonia Current Visit: Yes Status: Acute (2) Chest pain Current Visit: Yes Status: Acute History Interval history: patient was seen and evaluated at the bedside, chest pain is getting better. Patient home O2 evaluation, patient didn't have insurance and can't be discharged with home O2. Hospitalist Physical - Physical exam Narrative exam: Not in cardiopulmonary distress. The patient appeared well nourished and normally developed. Vital signs as documented. Head exam is unremarkable. No scleral icterus . Neck is without jugular venous distension, thyromegaly, or carotid bruits. Lungs are clear to auscultation. Cardiac exam reveals regular rate and Rhythm. First and second heart sounds normal. No murmurs, rubs or gallops. Abdominal exam reveals normal bowel sounds, no masses, no organomegaly and no aortic enlargement. Extremities are nonedematous and both femoral and pedal pulses are normal. SALESPERSON TERRAZZO TILES: Alert and oriented 3. No focal weakness. - Constitutional Vitals: Temp Pulse Resp BP Pulse Ox 97.9 F 98 H 20 160/73 96 05/30/17 11:58 05/30/17 11:58 05/30/17 11:58 05/30/17 11:58 05/30/17 11:58 Results - Labs CBC & Chem 7: 05/30/17 06:05 05/30/17 06:05 Labs: Laboratory Last Values WBC 11.2 K/mm3 (4.5-11.0) H 05/30/17 06:05 RBC 3.41 M/mm3 (3.65-5.03) L 05/30/17 06:05 Hgb 10.8 gm/dl (10.1-14.3) 05/30/17 06:05 Hct 31.2 % (30.3-42.9) 05/30/17 06:05 MCV 92 fl (79-97) 05/30/17 06:05 MCH 32 pg (28-32) 05/30/17 06:05 MCHC 35 % (30-34) H 05/30/17 06:05 RDW 14.9 % (13.2-15.2) 05/30/17 06:05 Plt Count 379 K/mm3 (140-440) 05/30/17 06:05 [place] % (Auto) Mis Specialist 05/30/17 06:05 Add Manual Diff Complete 05/30/17 06:05 Total Counted 100 05/30/17 06:05 Seg Neuts % (Manual) 74.0 % (40.0-70.0) H 05/30/17 06:05 Band Neutrophils % 4.0 % 05/30/17 06:05 Lymphocytes % (Manual) 7.0 % (13.4-35.0) L 05/30/17 06:05 Reactive Lymphs % (Man) 0 % 05/30/17 06:05 Monocytes % (Manual) 15.0 % (0.0-7.3) H 05/30/17 06:05 Eosinophils % (Manual) 0 % (0.0-4.3) 05/30/17 06:05 Basophils % (Manual) 0 % (0.0-1.8) 05/30/17 06:05 Metamyelocytes % 0 % 05/30/17 06:05 Myelocytes % 0 % 05/30/17 06:05 Promyelocytes % 0 % 05/30/17 06:05 Blast Cells % 0 % 05/30/17 06:05 Nucleated RBC % Not Reportable 05/30/17 06:05 Seg Neutrophils # Man 8.3 K/mm3 (1.8-7.7) H 05/30/17 06:05 Band Neutrophils # 0.4 K/mm3 05/30/17 06:05 Lymphocytes # (Manual) 0.8 K/mm3 (1.2-5.4) L 05/30/17 06:05 Abs React Lymphs (Man) 0.0 K/mm3 05/30/17 06:05 Monocytes # (Manual) 1.7 K/mm3 (0.0-0.8) H 05/30/17 06:05 Eosinophils # (Manual) 0.0 K/mm3 (0.0-0.4) 05/30/17 06:05 Basophils # (Manual) 0.0 K/mm3 (0.0-0.1) 05/30/17 06:05 Metamyelocytes # 0.0 K/mm3 05/30/17 06:05 Myelocytes # 0.0 K/mm3 05/30/17 06:05 Promyelocytes # 0.0 K/mm3 05/30/17 06:05 Blast Cells # 0.0 K/mm3 05/30/17 06:05 WBC Morphology Not Reportable 05/30/17 06:05 Hypersegmented Neuts Not Reportable 05/30/17 06:05 Hyposegmented Neuts Not Reportable 05/30/17 06:05 Hypogranular Neuts Not Reportable 05/30/17 06:05 Smudge Cells Not Reportable 05/30/17 06:05 Toxic Granulation Not Reportable 05/30/17 06:05 Toxic Vacuolation Not Reportable 05/30/17 06:05 Dohle Bodies Not Reportable 05/30/17 06:05 Pelger-Huet Anomaly Not Reportable 05/30/17 06:05 Rylan Rods Not Reportable 05/30/17 06:05 Platelet Estimate Not Reportable 05/30/17 06:05 Clumped Platelets Not Reportable 05/30/17 06:05 Plt Clumps, EDTA Not Reportable 05/30/17 06:05 Large Platelets Not Reportable 05/30/17 06:05 Giant Platelets Not Reportable 05/30/17 06:05 Platelet Satelliting Not Reportable 05/30/17 06:05 Plt Morphology Comment Not Reportable 05/30/17 06:05 RBC Morphology Not Reportable 05/30/17 06:05 Dimorphic RBCs Not Reportable 05/30/17 06:05 Polychromasia Not Reportable 05/30/17 06:05 Hypochromasia Not Reportable 05/30/17 06:05 Poikilocytosis Not Reportable 05/30/17 06:05 Anisocytosis 1+ 05/30/17 06:05 Microcytosis Not Reportable 05/30/17 06:05 Macrocytosis Not Reportable 05/30/17 06:05 Spherocytes Not Reportable 05/30/17 06:05 Pappenheimer Bodies Not Reportable 05/30/17 06:05 Sickle Cells Not Reportable 05/30/17 06:05 Target Cells 1+ 05/30/17 06:05 Tear Drop Cells Not Reportable 05/30/17 06:05 Ovalocytes Not Reportable 05/30/17 06:05 Helmet Cells Not Reportable 05/30/17 06:05 Mcdaniels-Blenheim Bodies Not Reportable 05/30/17 06:05 [place] Rings Not Reportable 05/30/17 06:05 [place] Cells Not Reportable 05/30/17 06:05 Bite Cells Not Reportable 05/30/17 06:05 Crenated Cell Not Reportable 05/30/17 06:05 Elliptocytes Not Reportable 05/30/17 06:05 Acanthocytes (Spur) Not Reportable 05/30/17 06:05 Rouleaux Not Reportable 05/30/17 06:05 Hemoglobin C Crystals Not Reportable 05/30/17 06:05 Schistocytes Not Reportable 05/30/17 06:05 Malaria parasites Not Reportable 05/30/17 06:05 Mac Bodies Not Reportable 05/30/17 06:05 Hem Pathologist Commnt No 05/30/17 06:05 PT 14.2 Sec. (12.2-14.9) 05/24/17 17:07 INR 1.05 (0.87-1.13) 05/24/17 17:07 APTT 31.4 Sec. (24.2-36.6) 05/24/17 17:07 POC ABG pH 7.317 (7.35-7.45) L 05/24/17 20:42 POC ABG pCO2 35.9 (35-45) 05/24/17 20:42 POC ABG pO2 200 (80-105) H 05/24/17 20:42 POC ABG HCO3 18.4 05/24/17 20:42 POC ABG Total CO2 19 05/24/17 20:42 POC ABG O2 Sat 100 05/24/17 20:42 POC ABG Base Excess -8 05/24/17 20:42 FiO2 100 % 05/24/17 20:42 Sodium 134 mmol/L (137-145) L 05/30/17 06:05 Potassium 2.8 mmol/L (3.6-5.0) L* 05/30/17 06:05 Chloride 91.3 mmol/L (98-107) L 05/30/17 06:05 Carbon Dioxide 28 mmol/L (22-30) 05/30/17 06:05 Anion Gap 18 mmol/L 05/30/17 06:05 BUN 4 mg/dL (7-17) L 05/30/17 06:05 Creatinine 0.4 mg/dL (0.7-1.2) L 05/30/17 06:05 Estimated GFR > 60 ml/min 05/30/17 06:05 BUN/Creatinine Ratio 10 % 05/30/17 06:05 Glucose 99 mg/dL (65-100) 05/30/17 06:05 Hemoglobin A1c 5.9 % (4-6) 05/24/17 17:07 Lactic Acid 0.90 mmol/L (0.7-2.0) 05/27/17 05:26 Calcium 8.2 mg/dL (8.4-10.2) L 05/30/17 06:05 Phosphorus 3.10 mg/dL (2.5-4.5) 05/25/17 05:09 Magnesium 1.30 mg/dL (1.7-2.3) L 05/25/17 05:09 Total Bilirubin 0.30 mg/dL (0.1-1.2) 05/25/17 05:09 AST 29 units/L (5-40) 05/25/17 05:09 ALT 10 units/L (7-56) 05/25/17 05:09 Alkaline Phosphatase 59 units/L (35-129) 05/25/17 05:09 Total Creatine Kinase 537 units/L (30-135) H 05/24/17 17:07 CK-MB (CK-2) 7.5 ng/mL (0.0-4.0) H 05/24/17 17:07 CK-MB (CK-2) Rel Index 1.3 (0-4) 05/24/17 17:07 Troponin T < 0.010 ng/mL (0.00-0.029) 05/24/17 17:07 C-Reactive Protein 0.60 mg/dL (0.00-1.30) 05/30/17 06:05 NT-Pro-B Natriuret Pep 586.3 pg/mL (0-450) H 05/24/17 17:07 Total Protein 6.4 g/dL (6.3-8.2) 05/25/17 05:09 Albumin 3.0 g/dL (3.9-5) L 05/25/17 05:09 Albumin/Globulin Ratio 0.9 % 05/25/17 05:09 Triglycerides 104 mg/dL (2-149) 05/24/17 17:07 Cholesterol 92 mg/dL (50-199) 05/24/17 17:07 LDL Cholesterol Direct 39 mg/dL (50-130) L 05/24/17 17:07 HDL Cholesterol 33 mg/dL (40-59) L 05/24/17 17:07 Cholesterol/HDL Ratio 2.78 % 05/24/17 17:07 HIV 1&2 Antibody Rapid Non react (Non React) 05/29/17 14:56 HIV P24 Antigen Non react (Non React) 05/29/17 14:56 Hypokalemia
[2017-05-30 17:39] LABS: BUN/Creatinine Ratio 8; Blood Urea Nitrogen 4 mg/dL (7-17); Calcium 8.5 mg/dL (8.4-10.2); Hemolysis Index 12
[2017-05-30] MEDS: LEVAQUIN 750MG/150ML 750 MG/150 ML BAG IV SCH (17:48)
[2017-05-30] MEDS: NACL 0.9% 1000 ML 1,000 ML IV SCH (19:38)
[2017-05-30] MEDS: AMBIEN PO PRN (22:03)
[2017-05-30] MEDS: NORMODYNE IV PRN (22:04)
[2017-05-31] MEDS: NORCO 5/325 PO PRN ×3 (02:03→15:28)
[2017-05-31] MEDS: DUONEB *Not for PRN Use IH SCH ×4 (02:30→19:53)
[2017-05-31] MEDS: XANAX PO PRN (05:35)
[2017-05-31 07:05] LABS: BUN/Creatinine Ratio 14; Basophils % (Auto) 0.1 % (0.0-1.8); Blood Urea Nitrogen 7 mg/dL (7-17); Calcium 8.3 mg/dL (8.4-10.2); Hematocrit 29.9 % (30.3-42.9); Hemoglobin 10.3 gm/dl (10.1-14.3); Hemolysis Index 7; Lymphocytes # (Auto) 0.7 K/mm3 (1.2-5.4); Lymphocytes % (Auto) 7.9 % (13.4-35.0); Mean Corpuscular HGB Conc 35 % (30-34); Mean Corpuscular Hemoglobin 32 pg (28-32); Mean Corpuscular Volume 91 fl (79-97); Monocytes # (Auto) 0.5 K/mm3 (0.0-0.8); Monocytes % (Auto) 5.3 % (0.0-7.3); Platelet Count 425 K/mm3 (140-440); Red Blood Count 3.27 M/mm3 (3.65-5.03); Red Cell Distribution Width 14.5 % (13.2-15.2)
[2017-05-31] MEDS: HCTZ PO SCH (09:49)
[2017-05-31] MEDS: PEPCID PO SCH (09:49)
[2017-05-31] MEDS: APRESOLINE PO SCH ×2 (09:50→15:29)
[2017-05-31] MEDS: COLACE PO SCH (09:50)
[2017-05-31] MEDS: NORVASC PO SCH (09:50)
[2017-05-31] MEDS: CATAPRES PO SCH (09:50)
[2017-05-31] MEDS: LOVENOX SUB-Q SCH (09:50)
[2017-05-31] MEDS: SENOKOT PO SCH (09:52)
--- NOTE | 2017-05-31 12:16 | Progress Note ---
Assessment and Plan Assessment: 1) Sepsis: resolved. Etiology - multifocal pneumonia. CRP=0.6 2) Multifocal pneumonia: ? CAP ?legionnaries. HIV test negative. Influenza negative. 3) Hyponatremia - better 4) Elevated CK 5) Respiratory failure - better Plan: -f/u procalcitonin -f/u Legionella urine antigen, Streptococcus pneumoniae urine antigen - pending -continue ceftriaxone day 6 of 7 -start levaquin day 3 of 10 -ok to d/c home on levaquin to complete 10 days until 06/07 ok to d/c home I am signing off Thank you Dr Giles for your consultation, will follow up with you. Fay Steele MD Infectious Diseases Specialist [facility] ([facility] M [phone] O [phone] Subjective Date of service: 05/31/17 Principal diagnosis: sepsis Interval history: Feels better, wants to go home. no wheezing, no fever. Microbiology: Blood cultures: 05/24 ngtd Current Antimicrobials: Ceftriaxone 05/26 levaquin 05/29 Previous Antimicrobials: azithromycin Objective - Exam Narrative Exam: General appearance: Alert in NAD pleasant Eyes: anicteric sclerae, moist conjunctivae; no lid-lag; PERRLA HENT: Atraumatic; oropharynx clear Neck: Trachea midline; supple, no thyromegaly or lymphadenopathy Lungs: CTA david CV: rrr Abdomen: Soft, non-tender; no masses or hepatosplenomegaly Extremities: No peripheral edema or extremity lymphadenopathy Skin: Normal temperature, turgor and texture; no rash, ulcers or subcutaneous nodules Psych: Appropriate affect, alert and oriented to person, place and time. Neuro: alert and oriented x 3. Moving all extermities Lines: No CVL / PICC - Constitutional Vitals: Vital Signs Temp Pulse Resp BP Pulse Ox 97.6 F 102 H 22 141/72 97 05/31/17 05:27 05/31/17 08:15 05/31/17 09:11 05/31/17 05:27 05/31/17 08:05 Temperature -Last 24 Hours Temperature 97.6 F Temperature 98.2 F Temperature 97.7 F Temperature 98.0 F - Labs CBC & Chem 7: 05/31/17 04:00 05/31/17 04:00 Labs: Abnormal lab results 05/30/17 05/30/17 05/31/17 Range/Units 06:05 16:59 04:00 RBC 3.27 L (3.65-5.03) M/mm3 Hct 29.9 L (30.3-42.9) % MCHC 35 H (30-34) % Lymph % (Auto) 7.9 L (13.4-35.0) % Lymph # 0.7 L (1.2-5.4) K/mm3 Seg Neutrophils % 86.7 H (40.0-70.0) % Seg Neuts % (Manual) 74.0 H (40.0-70.0) % Lymphocytes % (Manual) 7.0 L (13.4-35.0) % Monocytes % (Manual) 15.0 H (0.0-7.3) % Seg Neutrophils # Man 8.3 H (1.8-7.7) K/mm3 Lymphocytes # (Manual) 0.8 L (1.2-5.4) K/mm3 Monocytes # (Manual) 1.7 H (0.0-0.8) K/mm3 Sodium 134 L (137-145) mmol/L Potassium (3.6-5.0) mmol/L Chloride 89.5 L (98-107) mmol/L BUN 4 L (7-17) mg/dL Creatinine 0.5 L (0.7-1.2) mg/dL Glucose 160 H (65-100) mg/dL Calcium (8.4-10.2) mg/dL 05/31/17 Range/Units 04:00 RBC (3.65-5.03) M/mm3 Hct (30.3-42.9) % MCHC (30-34) % Lymph % (Auto) (13.4-35.0) % Lymph # (1.2-5.4) K/mm3 Seg Neutrophils % (40.0-70.0) % Seg Neuts % (Manual) (40.0-70.0) % Lymphocytes % (Manual) (13.4-35.0) % Monocytes % (Manual) (0.0-7.3) % Seg Neutrophils # Man (1.8-7.7) K/mm3 Lymphocytes # (Manual) (1.2-5.4) K/mm3 Monocytes # (Manual) (0.0-0.8) K/mm3 Sodium 134 L (137-145) mmol/L Potassium 3.3 L (3.6-5.0) mmol/L Chloride 89.7 L (98-107) mmol/L BUN (7-17) mg/dL Creatinine 0.5 L (0.7-1.2) mg/dL Glucose 144 H (65-100) mg/dL Calcium 8.3 L (8.4-10.2) mg/dL
[2017-05-31] MEDS ORDERED: LEVAQUIN PO SCH (15:00)
[2017-05-31] MEDS: cefTRIAXone 2 GM in NACL 0.9% 20 ML IV SCH (15:29)
--- NOTE | 2017-05-31 15:55 | Discharge Summary ---
Providers - Providers Date of Admission: 05/24/17 22:01 Attending physician: OZIEL GUPTA MD 05/29/17 09:16 Consult to Physician [CONS] Routine Consulting Provider: JAXSON MEZA Reason For Exam: bilateral pneumonia Place consult to:: Dr. Nash Notified:: Danii SUH Phone number called:: Was contact made?: Yes If yes, spoke with:: Carmen-office Time called:: 09:00 Primary care physician: THALIA LITTLE Hospitalization Reason for admission: bilateral pneumonia, COPD exacerbation Condition: Stable Pertinent studies: CTA bilateral infiltrates, no PE. Hospital course: 51-year-old -[place] female whose past medical history significant for hypertension, medication noncompliance, tobacco abuse was admitted to the floor for the management of bilateral pneumonia, COPD exacerbation. Patient was managed with his IV Levaquin for pneumonia. He was treated with Solu-Medrol, nebulizer, oxygen support for COPD exacerbation. Patient showed improvement. Patient need home oxygen, and discharged to his home oxygen. Patient is saturating well with 2 L of oxygen. Patient was given prescription for appropriate medication and was advised to follow-up with primary care doctor and [employer]. Patient was hemodynamically stable at the time of discharge. Disposition: [id number] HOME UNDER HOME [facility] Time spent for discharge: 31 minutes - Discharge Diagnoses (1) Bilateral pneumonia Status: Acute (2) Chest pain Status: Acute (3) COPD (chronic obstructive pulmonary disease) with emphysema Status: Acute Core Measure Documentation - Palliative Care Palliative Care/ Comfort Measures: Not Applicable - Core Measures Any of the following diagnoses?: none Exam - Physical Exam Narrative exam: Not in cardiopulmonary distress. The patient appeared well nourished and normally developed. Vital signs as documented. Head exam is unremarkable. No scleral icterus . Neck is without jugular venous distension, thyromegaly, or carotid bruits. Lungs significant for scattered wheezing. Cardiac exam reveals regular rate and Rhythm. First and second heart sounds normal. No murmurs, rubs or gallops. Abdominal exam reveals normal bowel sounds, no masses, no organomegaly and no aortic enlargement. Extremities are nonedematous and both femoral and pedal pulses are normal. MANAGER OUTREACH: Alert and oriented 3. No focal weakness. - Constitutional Vitals: Temp Pulse Resp BP Pulse Ox 97.6 F 102 H 20 141/72 97 05/31/17 05:27 05/31/17 08:15 05/31/17 15:28 05/31/17 05:27 05/31/17 08:05 Plan Activity: no restrictions Weight Bearing Status: Full Weight Bearing Diet: low cholesterol, low salt Follow up with: THALIA LITTLE MD [Primary Care Provider] - 7 Days DONALD PAREDES MD [Staff Physician] - 14 Days Prescriptions: ALBUTEROL Inhaler [ProAir HFA Inhaler] 2 puff IH QID PRN #1 can PRN Reason: Shortness Of Breath amLODIPine [Norvasc] 10 mg PO QDAY #30 tablet cloNIDine [Catapres] 0.3 mg PO Q12HR #60 tablet Docusate Sodium [Colace CAP] 100 mg PO BID #12 capsule hydrALAZINE [Apresoline TAB] 100 mg PO TID #90 tab HYDROcodone/APAP 5-325 [[place] 5-325 mg TAB] 2 each PO Q6H PRN #12 tablet PRN Reason: Pain, Moderate (4-6) Ipratropium/Albuterol Sulfate [DUONEB *Not for PRN Use*] 1 ampul IH Q6HRT #60 ampul.neb Levofloxacin [Levaquin] 750 mg PO QDAY #7 tablet Prednisone [predniSONE 10 mg (6-Day Pack, 21 Tabs)] 10 mg PO .TAPER #1 tab.ds.pk
[2017-05-31] MEDS: NACL 0.9% 1000 ML 1,000 ML IV SCH (16:25)
[2017-05-31 20:05] VITALS: BP 149/68
== END 2017-05-31 19:35 | disposition home health service (06) | DRG 871 ==
LOC: ED 14:48 → 4A 22:01
PROVIDERS: ADMIT Internal Medicine Geriatric Medicine; ATTEND Internal Medicine
PROC: 4A033R1 Measurement of Arterial Saturation, Peripheral, Percutaneous Approach (ICD-10-PCS; principal; 2017-05-24)
DX: A41.9 Sepsis, unspecified organism (principal); J18.9 Pneumonia, unspecified organism; J96.01 Acute respiratory failure with hypoxia; E87.1 Hypo-osmolality and hyponatremia; J44.0 Chronic obstructive pulmonary disease with (acute) lower respiratory infection; I10 Essential (primary) hypertension; F17.200 Nicotine dependence, unspecified, uncomplicated; I16.0 Hypertensive urgency
CPT/HCPCS: 36415; 71010; 71275; 78452; 80048; 80053; 80061; 82140; 82550; 82553; 82803; 83036; 83735; 83880; 84100; 84484; 85007; 85025; 85610; 85730; 86140; 87040; 87400; 87449; 87806; 90686; 93005; 93010; 93017; 94640; 94760; 96374; 96375; 99285; 99406; A9502; J0456; J0696; J1650; J1956; J2270; J2405; J2543; J2785; J2920; J7030; J7050; Q9967